=== PATIENT | male | born 1955 | race Caucasian/White ===

== ENCOUNTER → 2024-03-28 | Outpatient (CLI) | payer MEDICARE ==
[2024-03-28 12:26] LABS: BASOPHILS ABSOLUTE AUTO 0.02 K/mm3 (0.00-0.23); BASOPHILS PERCENT AUTO 0 % (0-2); EOSINOPHILS ABSOLUTE AUTO 0.04 K/mm3 (0.00-0.68); EOSINOPHILS PERCENT AUTO 0 % (0-6); Hematocrit 42.3 % (37.0-53.0); Hemoglobin 14.2 g/dL (13.5-17.5); IMMATURE GRAN ABSOLUTE AUTO 0.06 K/mm3 (0.00-0.10); IMMATURE GRAN PERCENT AUTO 1 % (0-1); LYMPHOCYTES ABSOLUTE AUTO 0.82 K/mm3 (0.84-5.20); LYMPHOCYTES PERCENT AUTO 7 % (21-46); MONOCYTES ABSOLUTE AUTO 1.09 K/mm3 (0.16-1.47); MONOCYTES PERCENT AUTO 9 % (4-13); Mean Corpuscular HGB 30.9 pg (26.0-34.0); Mean Corpuscular HGB Conc 33.6 g/dL (31.5-36.5); Mean Corpuscular Volume 92 fL (80-100); Mean Platelet Volume 9.9 fL (9.1-12.4); NEUTROPHILS ABSOLUTE AUTO 10.66 K/mm3 (1.96-9.15); NEUTROPHILS PERCENT AUTO 84 % (41-73); Platelet Count 190 K/mm3 (150-400); RDW Coefficient Variation 12.6 % (11.7-14.2); RDW Standard Deviation 42.6 fL (35.1-46.3); Red Blood Cell Count 4.59 M/mm3 (4.30-5.90); White Blood Cell Count 12.69 K/mm3 (4.00-11.30)
[2024-03-28 12:36] LABS: Albumin, Blood 3.6 g/dL (3.4-5.0); Albumin/Globulin Ratio 0.8 (0.8-1.8); Bilirubin, Total 0.9 mg/dL (0.1-1.0); Bun/Creatinine Ratio 12.1 (12.0-20.0); Calcium, Blood 9.6 mg/dL (8.5-10.1); Creatinine, Blood 1.32 mg/dL (0.60-1.20); Globulin, Blood 4.8 g/dL (2.2-4.0); Potassium, Blood 4.8 mmol/L (3.5-5.5); Total Protein, Blood 8.4 g/dL (6.4-8.2)
== END | disposition home or self-care (01) ==
LOC: LAB 12:21 → LAB SHORT 12:21
PROVIDERS: Family Medicine
DX: R10.9 Unspecified abdominal pain (principal)
CPT/HCPCS: 80053; 85025

== ENCOUNTER 2024-05-23 13:37 | Inpatient (IN) | payer MEDICARE ==
[2024-05-23] VITALS (15 sets, daily range): BP systolic 80–201; BP diastolic 60–101
[~2024-05-23] VITALS: Ht 182.9 cm; Wt 79.6 kg
[2024-05-23 14:14] LABS: BASOPHILS ABSOLUTE AUTO 0.05 K/mm3 (0.00-0.23); BASOPHILS PERCENT AUTO 1 % (0-2); EOSINOPHILS ABSOLUTE AUTO 0.12 K/mm3 (0.00-0.68); EOSINOPHILS PERCENT AUTO 2 % (0-6); Hematocrit 36.8 % (37.0-53.0); Hemoglobin 11.9 g/dL (13.5-17.5); IMMATURE GRAN ABSOLUTE AUTO 0.17 K/mm3 (0.00-0.10); IMMATURE GRAN PERCENT AUTO 2 % (0-1); LYMPHOCYTES ABSOLUTE AUTO 1.76 K/mm3 (0.84-5.20); LYMPHOCYTES PERCENT AUTO 21 % (21-46); MONOCYTES ABSOLUTE AUTO 0.65 K/mm3 (0.16-1.47); MONOCYTES PERCENT AUTO 8 % (4-13); Mean Corpuscular HGB 29.9 pg (26.0-34.0); Mean Corpuscular HGB Conc 32.3 g/dL (31.5-36.5); Mean Corpuscular Volume 93 fL (80-100); Mean Platelet Volume 9.8 fL (9.1-12.4); NEUTROPHILS ABSOLUTE AUTO 5.48 K/mm3 (1.96-9.15); NEUTROPHILS PERCENT AUTO 67 % (41-73); Platelet Count 204 K/mm3 (150-400); RDW Coefficient Variation 13.2 % (11.7-14.2); RDW Standard Deviation 44.7 fL (35.1-46.3); Red Blood Cell Count 3.98 M/mm3 (4.30-5.90); White Blood Cell Count 8.23 K/mm3 (4.00-11.30)
[2024-05-23] MEDS ORDERED: Rocuronium Bromide 10 MG/ML 5ML Injection IV ONE (14:18)
[2024-05-23] MEDS ORDERED: Propofol 10mg/ml 20 ml Vial (Procedural) IV ONE (14:18)
[2024-05-23] MEDS ORDERED: Phenylephrine HCl 100 MCG/ML-NS 10MLSYR (1MG/10ML) IV ONE (14:18)
[2024-05-23 14:21] LABS: Base Excess Venous -1.2 mmol/L; Bicarbonate Venous 22.6 mmol/L (24.0-30.0); PCO2 Venous 51.1 mmHg (38-42)
[2024-05-23 14:27] LABS: International Normalized Ratio 1.08; Prothrombin Time Results 11.5 Sec (9.7-11.5)
[2024-05-23 14:37] LABS: Free Thyroxine 1.2 ng/dL (0.70-1.60); Magnesium, Blood 2.4 mg/dL (1.6-2.4)
[2024-05-23 14:39] LABS: Bun/Creatinine Ratio 21.3 (12.0-20.0); Calcium, Blood 8.7 mg/dL (8.5-10.1); Creatinine, Blood 0.94 mg/dL (0.60-1.20); Potassium, Blood 4.5 mmol/L (3.5-5.5); Thyroid Stimulating Hormone 6.86 uIU/mL (0.360-4.800)
[2024-05-23] MEDS ORDERED: Diphth,Pertuss(Acell),Tet Vac 0.5 ML VIAL IM ONE (14:55)
[2024-05-23] MEDS ORDERED: CeFAZolin Sodium 2,000 MG in NS 100 ML IV ONE (15:45)
[2024-05-23] MEDS ORDERED: Heparin Sodium,Porcine/0.5 NS 500 ML IV SCH (16:25)
[2024-05-23] MEDS ORDERED: Heparin Sodium 5000 Units/ML 1ML MDV IV ONE (16:25)
[2024-05-23] MEDS ORDERED: HYDROmorphone HCl/Pf 1MG SYR IV ONE (16:30)
[2024-05-23] MEDS ORDERED: Ondansetron HCl 2 MG / ML 2ML Vial IV PRN (16:35)
[2024-05-23] MEDS ORDERED: FLU VACC TS2024-25(6MOS UP)/PF 45 MCG/0.5 ML SYRINGE IM PRN (16:35)
--- NOTE | 2024-05-23 19:17 | NUR ---
Admission to ICU: Patient arrived to ICU at approx 1800hr. Patient alert and oriented x4, VSS. Patient on BiPAP at 40% on arrival, but activley oozing/bleeding from nose. Concern for aspiration of blood, BiPAP mask removed and placed on high-flow cannula at 10L. NC placed over mouth as nose is plugged with blood. SpO2-88-92%. Denies difficulty breathing and shows no s/s of respiratory distress. Bleeding from nose increased over next hour to constant oozing from right nostril. Call's placed to Dr. Monterroso, made aware. Call also placed to Dr. Jones in ED to discuss use of rhino rockets. Dr. Jones then discussed case with Dr. Yee, and arrived to unit at this time to joe patient's nostrils. VS remain stable. Pre-blake results of venous duplex study and echo discussed with Dr. Camacho, who is in route to see patient at this time. Patient possibly going to [facility] for thrombectomy, Dr. Camacho to determine. Bedside report given to Heena HERRING.
[2024-05-23 20:03] LABS: Hematocrit 35.1 % (37.0-53.0); Hemoglobin 11.6 g/dL (13.5-17.5)
[2024-05-23] MEDS ORDERED: FentaNYL Citrate 50 MCG/ML 2 ML Injection ONE ×2 (20:05→20:37)
[2024-05-23 20:14] LABS: Anti-Xa UFH, PHA Monitoring 0.71 IU/mL
[2024-05-23] MEDS ORDERED: propofoL 100 ML IV SCH (20:25)
[2024-05-23] MEDS ORDERED: FentaNYL Citrate 50 MCG/ML 2 ML Injection IV ONE ×3 (20:40→21:10)
[2024-05-23] MEDS ORDERED: Midazolam HCl 1MG / ML 2ML Vial ONE (21:04)
[2024-05-23] MEDS ORDERED: Midazolam HCl 1MG / ML 2ML Vial IV ONE (21:15)
[2024-05-23] MEDS ORDERED: fentaNYL citrate 1,000 MCG in NS 80 ML IV SCH (21:30)
[2024-05-23] MEDS ORDERED: NS 250 ML IV ONE (22:02)
[2024-05-23] MEDS ORDERED: NS 100 ML IV ONE (22:02)
[2024-05-23] MEDS ORDERED: Heparin Sodium 1000 Units/ML 10ML MDV ONE (22:03)
[2024-05-23] MEDS ORDERED: NS 2,000 ML IV ONE (22:03)
[2024-05-23 22:08] LABS: Source, Urine Foley catheter
[2024-05-23 22:10] LABS: Appearance, Urine Clear (Clear); Bilirubin, Urine Neg (Neg); Blood, Urine 2+ (Neg); Color, Urine Yellow (P-Yellow); Glucose Qualitative, Urine Neg (Neg); Ketones, Urine 3+ (Neg); Leukocyte Esterase, Urine Neg (Neg); Nitrite, Urine Neg (Neg); Protein, Urine 2+ (Neg); Specific Gravity, Urine 1.025 (1.003-1.022); Urobilinogen, Urine NORM (Normal)
[2024-05-23 22:25] LABS: Bacteria Few /hpf; Hyaline Casts 0-2 /lpf (0-2); Mucus Light (0-Heavy); Red Blood Cells, Urine 0-2 /hpf (0-2); Squamous Epithelial Cells Few /hpf (Few); White Blood Cells, Urine 0-2 /hpf (0-5)
[2024-05-23] MEDS ORDERED: Atropine Sulfate 0.1 MG/ML 10ML SYR ONE ×2 (23:34→23:35)
[2024-05-24] VITALS (77 sets, daily range): BP systolic 82–150; BP diastolic 55–74
[2024-05-24] MEDS ORDERED: CeFAZolin Sodium 2,000 MG in NS 100 ML IV SCH
[2024-05-24] MEDS ORDERED: NS 250 ML IV ONE (00:25)
[2024-05-24] MEDS ORDERED: Heparin Sodium 1000 Units/ML 10ML MDV ONE (00:25)
[2024-05-24] MEDS ORDERED: Midazolam HCl 1MG / ML 2ML Vial ONE (00:45)
[2024-05-24] MEDS ORDERED: NS 250 ML IV PRN (02:15)
--- NOTE | 2024-05-24 02:28 | NUR ---
ASSUMED CARE AT 1900 PATIENT WAS ALERT AND ORIENTED X4 AT START OF SHIFT, SITTING UP IN BED. MODERATE AMOUNT OF BLOOD FROM NOSE AND PATIENT COUGHING UP AND SUCTIONING BLOOD FROM HIS MOUTH. PATIENT STATES ITS DIFFICULT TO BREATHE. HR SR-ST 90s-120s. BP HYPERTENSIVE. DISCUSSION WITH PATIENT ABOUT PROTECTING HIS AIRWAY AND POSSIBLY NEEDING TO LAY FLAT FOR ROULETTE DEALER PROCEDURE. HEPARIN DRIP INFUSING, AWARE OF BLEEDING. DECISION TO INTUBATE PATIENT. DR. VEGA AT BEDSIDE. 2020- 50 MCG FENTANYL 2020- 40 MG PROPOFOL 2021- 40 MG PROPOFOL 2022- 50 MCG FENTANYL, ETT PLACED 8.0 26 AT THE TEETH 2023- 50 MG BANDAR FOR VENT COMPLIANCE, VENT SETTINGS AC VC 16/540/5/100% AFTER INTUBATION CENTRAL LINE PLACED BY DR. VEGA. PATIENTS BLOOD PRESSURE DECLINING, DR. VEGA AT BEDSIDE AND ORDERS TO PUSH PHENYLEPHRINE 100 MCG AT 2110, ANOTHER DOSE 100 MCG GIVEN AT 2126, AND LAST DOSE OF 100 MCG GIVEN AT 2139. PATIENT STARTED ON LEVOPHED. PROPOFOL AND FENTANYL INFUSING FOR SEDATION. NOVOA CATHETER PLACED. DR. LAZO TO BEDSIDE WITH ROULETTE DEALER, PATIENT TO ROULETTE DEALER AT 2235. THIS RN WITH PATIENT TO ROULETTE DEALER. PATIENT BACK TO ICU 8 FROM ROULETTE DEALER AT 0200, RIGHT GROIN FLOSTASIS DEVICE IN PLACE AND PRESSURE DRESSING OVERTOP.
[2024-05-24 03:31] LABS: BASOPHILS ABSOLUTE AUTO 0.02 K/mm3 (0.00-0.23); BASOPHILS PERCENT AUTO 0 % (0-2); EOSINOPHILS ABSOLUTE AUTO 0.01 K/mm3 (0.00-0.68); EOSINOPHILS PERCENT AUTO 0 % (0-6); Hemoglobin 9.3 g/dL (13.5-17.5); IMMATURE GRAN PERCENT AUTO 1 % (0-1); LYMPHOCYTES ABSOLUTE AUTO 1.02 K/mm3 (0.84-5.20); LYMPHOCYTES PERCENT AUTO 8 % (21-46); MONOCYTES ABSOLUTE AUTO 0.86 K/mm3 (0.16-1.47); MONOCYTES PERCENT AUTO 6 % (4-13); Mean Corpuscular HGB 30.5 pg (26.0-34.0); Mean Corpuscular HGB Conc 33.2 g/dL (31.5-36.5); Mean Corpuscular Volume 92 fL (80-100); Mean Platelet Volume 9.3 fL (9.1-12.4); NEUTROPHILS ABSOLUTE AUTO 11.64 K/mm3 (1.96-9.15); NEUTROPHILS PERCENT AUTO 85 % (41-73); Platelet Count 185 K/mm3 (150-400); RDW Coefficient Variation 13.2 % (11.7-14.2); RDW Standard Deviation 44.7 fL (35.1-46.3); Red Blood Cell Count 3.05 M/mm3 (4.30-5.90); White Blood Cell Count 13.65 K/mm3 (4.00-11.30)
[2024-05-24 03:52] LABS: Albumin, Blood 2.7 g/dL (3.4-5.0); Albumin/Globulin Ratio 0.8 (0.8-1.8); Bilirubin, Total 0.4 mg/dL (0.1-1.0); Bun/Creatinine Ratio 22.9 (12.0-20.0); Creatinine, Blood 0.83 mg/dL (0.60-1.20); Globulin, Blood 3.2 g/dL (2.2-4.0); Potassium, Blood 4.9 mmol/L (3.5-5.5); Total Protein, Blood 5.9 g/dL (6.4-8.2)
--- NOTE | 2024-05-24 06:07 | NUR ---
SHIFT SUMMARY PATIENT REMAINS INTUBATED AND SEDATED ON PROPOFOL AND FENTANYL, COUGHS AND UNABLE TO TOLERATE VENT WITH ANY STIMULI. SP02 100% ON VENT AC VC 16/540/5/90%, RR 20, SMALL AMOUNT OF JUANITO RED BLOOD FROM ETT. LUNG SOUNDS COARSE. HR SR 80s, BP HYPOTENSIVE, MAINTAINING MAP >65 ON LEVOPHED. OG TO LIS, 100 MLS DARK BROWN OUTPUT. NOVOA PATENT AND DRAINING TO GRAVITY. FACE SWOLLEN AND BRUISED, ATTEMPTED TO CLEAN BUT PATIENT UNABLE TO TOLERATE. RIGHT GROIN SITE WNL WITH FLOWSTASIS DEVICE AND TEGADERM
[2024-05-24] MEDS ORDERED: Cetylpyridinium Chloride 1 EA MISC MT SCH (08:00)
[2024-05-24] MEDS ORDERED: Lactated Ringer's 1,000 ML IV ONE ×2 (10:00→15:40)
[2024-05-24] MEDS ORDERED: Hydrogen Peroxide 1.5 % Solution MT SCH (12:00)
[2024-05-24 12:12] LABS: Base Excess Venous 0.9 mmol/L; Bicarbonate Venous 24.8 mmol/L (24.0-30.0); PCO2 Venous 48.1 mmHg (38-42); pH Blood Venous 7.35 (7.34-7.37)
--- NOTE | 2024-05-24 14:13 | NUR ---
Flow stasis device removed at 1405, site observed for bleeding/oozing, sutures removed and occlusive dressing applied.
--- NOTE | 2024-05-24 18:15 | NUR ---
Summary. Pt continues ventilated and sedated. Fi02 titrated down to 30%. Levophed at 4 mcg/min. Flow stasis device removed. No acute events this shift. See chart for further details.
--- NOTE | 2024-05-24 19:24 | NUR ---
ASSUMED CARE AT 1900 PATIENT IS INTUBATED AND SEDATED ON PROPOFOL AND FENTANYL, RASS -3 TO -4. LOCALIZES TO PAIN, GAG AND COUGH PRESENT. SP02 95% ON VENT, VENT AC VC 16/540/5/30%, RR 16. HR SR 80s, BP HYPOTENSIVE, LEVOPHED INFUSING TO MAINTAIN MAP >65. OG TO LIS, BROWN BILE OUTPUT. NOVOA PATENT AND DRAINING CLEAR YELLOW URINE TO GRAVITY. BRUSING AND FACIAL SWELLING STILL PRESENT FROM FALL, NO LONGER OOZING BLOOD. ORAL CARE DONE. SEE SHIFT ASSESSMENT FOR MORE INFORMATION
[2024-05-24] MEDS ORDERED: Heparin Sodium,Porcine 5,000 UNIT/0.5 ML SDV SC ONE (21:00)
[2024-05-24] MEDS ORDERED: Heparin Sodium,Porcine 5,000 UNIT/0.5 ML SDV SC SCH (21:00)
[2024-05-25] VITALS (63 sets, daily range): BP systolic 89–135; BP diastolic 48–73
[2024-05-25 05:12] LABS: Hematocrit 22.2 % (37.0-53.0); Hemoglobin 7.2 g/dL (13.5-17.5); Mean Corpuscular HGB 30.1 pg (26.0-34.0); Mean Corpuscular HGB Conc 32.4 g/dL (31.5-36.5); Mean Corpuscular Volume 93 fL (80-100); Platelet Count 133 K/mm3 (150-400); RDW Coefficient Variation 13.4 % (11.7-14.2); RDW Standard Deviation 45.9 fL (35.1-46.3); Red Blood Cell Count 2.39 M/mm3 (4.30-5.90); White Blood Cell Count 9.41 K/mm3 (4.00-11.30)
--- NOTE | 2024-05-25 05:17 | NUR ---
SHIFT SUMMARY PATIENT REMAINS INTUBATED ABD SEDATED. VENT SETTINGS UNCHANGED. HR SR 90s, BP REMAINS HYPOTENSIVE, LEVOPHED TO MAINTAIN MAP >65. OG TO LIS. NOVOA PATENT AND DRAINING TO GRAVITY. NO ACUTE CHANGES OVERNIGHT
[2024-05-25 05:31] LABS: Bun/Creatinine Ratio 23.7 (12.0-20.0); Calcium, Blood 7.8 mg/dL (8.5-10.1); Creatinine, Blood 0.76 mg/dL (0.60-1.20); Potassium, Blood 4.1 mmol/L (3.5-5.5)
[2024-05-25] MEDS ORDERED: Heparin Sodium,Porcine/0.5 NS 500 ML IV SCH (07:00)
[2024-05-25] MEDS ORDERED: Dose Adjust by Pharmacy XX ONE (07:00)
[2024-05-25] MEDS ORDERED: Magnesium Hydroxide Conc 10 ML UDC PT PRN (12:10)
[2024-05-25] MEDS ORDERED: Docusate Sodium 100 MG UDC PT PRN (12:10)
[2024-05-25] MEDS ORDERED: Bisacodyl 10 MG Supp PR PRN (12:10)
[2024-05-25 12:37] LABS: Hematocrit 23.3 % (37.0-53.0); Hemoglobin 7.6 g/dL (13.5-17.5)
[2024-05-25] MEDS ORDERED: Dose Adjust by Pharmacy XX STA ×2 (14:06→20:50)
--- NOTE | 2024-05-25 18:45 | NUR ---
SHIFT SUMMARY: PT REMAINS INTUBATED, SETTINGS UNCHANGED. PROPOFOL @ 40UNITS/KG, FENTANYL @ 50MCG/HR, HEPARIN @18UNITS/KG. CENTRAL LINE AND ONE PERIPHERAL IV PATENT. OG TUBE IN PLACE AND TUBE FEEDING @ 50ML/HR WITH A GOAL RATE OF 65. NOVOA CATHETER IN PLACE, URINE OUTPUT INADEQUATE AT 25ML/HR ON AVERAGE. HEPARIN WAS RESTARTED AT 0700 AND BLEEDING HAS BEEN MINIMAL. SMALL AMOUNT OF RED BLOOD SUCTIONED FROM ET TUBE AND MOUTH EACH TIME PATIENT SUCTIONED. LIGHT BLEEDING FROM NOSE BRIEFLY. CENTRAL LINE AND IVC FILTER INSERTION SITE LEAKING SMALL AMOUNT. BRUISING AND SWELLING TO FACE, ABLE TO ASSESS PUPILS. EYE MOVEMENT INTACT, PUPILS UNEQUAL WITH LEFT 1MM SMALLER. SINUS RHYTHM ON THE MONITOR 80S-90S AND NORMOTENSIVE BLOOD PRESSURE. PATIENT EXHIBITED SOME RESPONSES TO STIMULI AND NODDED HEAD TO 1 OR 2 QUESTIONS. OTHERWISE NOT FOLLOWING COMMANDS. PT WAS UP IN CHAIR FOR SEVERAL HOURS AND TOLERATED WELL.
--- NOTE | 2024-05-25 21:22 | NUR ---
ASSUMED CARE ASSUMED CARE AT 1900. PT INTUBATED AND SEDATED. AC/VC 16/460/5/30%. PROPOFOL, FENTANYL, AND HEPARIN GTT INFUSING. SEE FLOWSHEET FOR TITRATIONS. ABLE TO FOLLOWS SIMPLE DIRECTIONS, OPENS RIGHT EYE TO VERBAL STIMULI, AND NODS HEAD YES/NO TO QUESTIONS. TF AT 50ML/HR. NOVOA PATENT AND DRAINING TO GRAVITY. R GROIN SITE WITH MINIMAL BLEEDING NOTED. SMALL AMOUNT OF BLEEDING FROM NOSE AND MOUTH.
[2024-05-26] VITALS (68 sets, daily range): BP systolic 94–183; BP diastolic 53–82
[2024-05-26 03:36] LABS: BASOPHILS ABSOLUTE AUTO 0.03 K/mm3 (0.00-0.23); BASOPHILS PERCENT AUTO 0 % (0-2); EOSINOPHILS ABSOLUTE AUTO 0.28 K/mm3 (0.00-0.68); EOSINOPHILS PERCENT AUTO 3 % (0-6); Hematocrit 19.2 % (37.0-53.0); Hemoglobin 6.2 g/dL (13.5-17.5); IMMATURE GRAN ABSOLUTE AUTO 0.12 K/mm3 (0.00-0.10); IMMATURE GRAN PERCENT AUTO 2 % (0-1); LYMPHOCYTES PERCENT AUTO 11 % (21-46); MONOCYTES ABSOLUTE AUTO 0.57 K/mm3 (0.16-1.47); MONOCYTES PERCENT AUTO 7 % (4-13); Mean Corpuscular HGB 30.1 pg (26.0-34.0); Mean Corpuscular HGB Conc 32.3 g/dL (31.5-36.5); Mean Corpuscular Volume 93 fL (80-100); Mean Platelet Volume 10.1 fL (9.1-12.4); NEUTROPHILS PERCENT AUTO 77 % (41-73); Platelet Count 141 K/mm3 (150-400); RDW Coefficient Variation 13.5 % (11.7-14.2); RDW Standard Deviation 45.8 fL (35.1-46.3); Red Blood Cell Count 2.06 M/mm3 (4.30-5.90)
[2024-05-26] MEDS ORDERED: Dose Adjust by Pharmacy XX STA ×3 (03:53→18:06)
[2024-05-26 04:26] LABS: Anion Gap 9 mmol/L (3-11); Blood Urea Nitrogen 16 mg/dL (8-24); Bun/Creatinine Ratio 24.8 (12.0-20.0); CO2, Blood 28 mmol/L (21-32); Calcium, Blood 7.8 mg/dL (8.5-10.1); Chloride, Blood 107 mmol/L (98-108); Creatinine, Blood 0.64 mg/dL (0.60-1.20); Glomerular Filtration Rate 102 (60-); Glucose, Blood 123 mg/dL (70-99); Phosphorus, Blood 2.3 mg/dL (2.5-4.9); Potassium, Blood 3.9 mmol/L (3.5-5.5); Sodium, Blood 140 mmol/L (136-145)
--- NOTE | 2024-05-26 05:18 | NUR ---
UPDATE CALL TO HOSP REGARDING HBG OF 6.2. ORDER FOR ONE UNIT OF PRBC AND A RECHECK ONE HOUR POST INFUSION. NO S/S OF MAJOR BLEEDING NOTED. PT DOES HAVE SCANT/MINIMAL BLEEDING FROM NOSE AND MOUTH. NO BRUISING OR HEMATOMA NOTED. PT HAS HAD AN INCREASE OF EDEMA TO NECK, BUT NECK REMAINS SOFT. VSS. REMAINS INTUBATED AND SEDATED AC/VC 16/460/5/35%. NODDING HEAD YES/NO TO QUESTIONS. NOVOA PATENT AND DRAINING TO GRAVITY. TF AT GOAL. WILL REPORT OFF TO ONCOMING RN.
[2024-05-26] MEDS ORDERED: FentaNYL Citrate 50 MCG/ML 2 ML Injection IV PRN (09:30)
[2024-05-26 10:26] LABS: Hematocrit 24.1 % (37.0-53.0); Hemoglobin 8.1 g/dL (13.5-17.5); Platelet Count 153 K/mm3 (150-400)
[2024-05-26] MEDS ORDERED: Ipratropium/Albuterol SulF 2.5-0.5MG/3 ML Amp INH SCH (10:30)
[2024-05-26] MEDS ORDERED: Sodium Phosphate 30 MM in Dextrose 5% 500 ML IV STA (13:29)
--- NOTE | 2024-05-26 16:16 | NUR ---
PATIENT WAS EXTUBATED THIS SHIFT. DID WELL WITH IT. DISCUSSED CASE WITH BEDSIDE RN. NOT CLEAR IF PROGNOSIS OR DIAGNOSIS HAD BEEN DISCUSSED WITH PATIENT AT THIS TIME.
--- NOTE | 2024-05-26 18:38 | NUR ---
SHIFT SUMMARY: PT REMAINED INTUBATED AND SEDATED AT THE START OF SHIFT. HE WAS EXTUBATED AT 0947 AFTER PASSING SBT. PT WAS QUICKLY ORIENTED, BUT HAD TO BE REMINDED AND EDUCATED THROUGHOUT THE SHIFT ABOUT WHAT HAPPENED AND WHY HE IS HERE. HE IS VERY PLEASANT AND COOPERATIVE. HE IS ON 9LPM @ A FIO2 OF 50 VIA HUMIDIFIED VENTURI MASK. PATIENT HAS A PRODUCTIVE COUGH AND IS SUCTIONING BLOOD FROM HIS MOUTH. HIS FACE IS BRUISED, BUT SWELLING HAS IMPROVED. CENTRAL LINE AND IVC FILTER INSERTION SITE WERE REDRESSED. NO EXTERNAL BLEEDING NOTED TODAY. PATIENT IS MOVING AROUND ON HIS OWN, BUT STILL PAINFUL AND REQUIRES ASSISTANCE WITH BIG MOVES. HE DOES NOT WANT ANYMORE FENTANYL FOR PAIN. PT REMAINS ON HEPARIN GTT. NOVOA CATHETER STILL IN PLACE. URINE OUTPUT HAS IMPROVED TODAY. SINUS RHYTHM ON THE MONITOR IN THE 90S. MAP <65.
--- NOTE | 2024-05-26 20:47 | NUR ---
ASSUMED CARE ASSUMED CARE AT 1900. PT A/O X 3 AND COOPERATIVE WITH CARE. STATES HE KNOWS THE ETT WAS TAKEN OUT TODAY BUT UNSURE OF WHAT HAPPENED BEFORE THAT. VSS, SR RATE 90'S. ON VENTURI MASK 9L 50% FIO2 WITH SPO2 GREATER THEN 91%. COUGHING OCCASIONALLY AND PT SUCTIONING RED SECRETIONS FROM MOUTH. C/O OF CHEST PAIN BUT DECLINES PAIN MEDICATION AT THIS TIME. NOVOA PATENT AND DRAINING TO GRAVITY. CALL LIGHT IN REACH.
[2024-05-27] VITALS (28 sets, daily range): BP systolic 107–165; BP diastolic 58–111
[2024-05-27 00:28] LABS: BASOPHILS ABSOLUTE AUTO 0.02 K/mm3 (0.00-0.23); BASOPHILS PERCENT AUTO 0 % (0-2); EOSINOPHILS PERCENT AUTO 2 % (0-6); Hematocrit 23.1 % (37.0-53.0); Hemoglobin 7.5 g/dL (13.5-17.5); IMMATURE GRAN ABSOLUTE AUTO 0.16 K/mm3 (0.00-0.10); IMMATURE GRAN PERCENT AUTO 2 % (0-1); LYMPHOCYTES ABSOLUTE AUTO 1.05 K/mm3 (0.84-5.20); LYMPHOCYTES PERCENT AUTO 11 % (21-46); MONOCYTES ABSOLUTE AUTO 0.68 K/mm3 (0.16-1.47); MONOCYTES PERCENT AUTO 7 % (4-13); Mean Corpuscular HGB 30.4 pg (26.0-34.0); Mean Corpuscular HGB Conc 32.5 g/dL (31.5-36.5); Mean Corpuscular Volume 94 fL (80-100); Mean Platelet Volume 9.6 fL (9.1-12.4); NEUTROPHILS PERCENT AUTO 79 % (41-73); NRBC ABSOLUTE 0.03 K/mm3 (0.00-0.02); NRBC Auto 0.3 /100 WBC (0.0-0.2); Platelet Count 173 K/mm3 (150-400); RDW Coefficient Variation 13.6 % (11.7-14.2); Red Blood Cell Count 2.47 M/mm3 (4.30-5.90); White Blood Cell Count 9.81 K/mm3 (4.00-11.30)
[2024-05-27 00:43] LABS: Bun/Creatinine Ratio 14.6 (12.0-20.0); Calcium, Blood 8.1 mg/dL (8.5-10.1); Creatinine, Blood 0.62 mg/dL (0.60-1.20); Magnesium, Blood 2.1 mg/dL (1.6-2.4); Phosphorus, Blood 2.6 mg/dL (2.5-4.9); Potassium, Blood 3.4 mmol/L (3.5-5.5)
[2024-05-27] MEDS ORDERED: Dose Adjust by Pharmacy XX STA ×4 (00:52→23:16)
--- NOTE | 2024-05-27 06:11 | NUR ---
SHIFT SUMMARY NO ACUTE EVENTS T/O NIGHT. PT A/O X 3. PT REPORTS THAT HE STILL FEELS HIS NOSE DRAINING TO THE BACK OF HIS THROAT AND SUCTIONS OUT THIN RED SECRETIONS. ANXIOUS AT TIMES REGARDING MEDICATIONS AND REQUIRES FREQUENT REMINDERS OF WHAT HAPPENED. VSS, HR 80-90'S. ON VENTURI MASK 7L 50% FIO2. HEPARIN GTT REMAINS INFUSING. SEE FLOWSHEET FOR RATE AND TITRATIONS. NOVOA PATENT AND DRAINING TO GRAVITY. WILL REPORT OFF TO ONCOMING RN.
[2024-05-27 07:04] LABS: Hemoglobin 7.6 g/dL (13.5-17.5); Mean Platelet Volume 9.5 fL (9.1-12.4); Platelet Count 189 K/mm3 (150-400)
[2024-05-27] MEDS ORDERED: Oxymetazoline 0.05% Nasal Relief Spray 15mL BTL PRN (08:00)
[2024-05-27] MEDS ORDERED: Potassium Chloride 20 MEQ TabCR PO ONE ×2 (10:10→13:40)
[2024-05-27] MEDS ORDERED: Potassium Chl 20MEQ/Water100ML 100 ML IV SCH (14:25)
--- NOTE | 2024-05-27 18:30 | NUR ---
DAY SHIFT SUMMARY PT ALERT THIS SHIFT KNOWING HIS NAME, , AND WHERE HE IS BUT HIS RECOLLECTION OF THE EVENTS THAT LED TO HIS CURRENT HOSPITALIZATION ARE UNKNOWN TO HIM. PT MAKING HIS NEEDS KNOWN. PT'S O2 STARTED THE SHIFT AT 7L 50% FIO2 ON THE VENTURI MASK BUT HE IS NOW DOWN TO 6L 35% FIO2, SPO2 STABLE >92%. MONITOR SHOWING SR 80'S-90'S THIS SHIFT. BP WNL AND STABLE. PT AFEBRILE THIS SHIFT. PT HAVING CONTINUED BLEEDING W POST NASAL DRIP THIS AM BUT AFTER HE RECIEVED AFRIN NASAL SPRAY THIS DECREASED SIGNIFICANTLY. PT TOLERATING CLEAR LIQUIDS THIS SHIFT BUT WAS UNABLE TO SWALLOW A PILL IN APPLESAUCE SO PO POTASSIUM CHANGED TO IV. PT REPORTING PAIN IN RIBS W MOVEMENT BUT DID NOT WANT ANY PAIN MEDICATION THIS SHIFT. PT HAD CENTRAL LINE REMOVED THIS SHIFT. PT UP IN CHAIR FOR SECOND HALF OF THE SHIFT TOLERATING WELL. WILL REPORT TO ONCOMING RN.
--- NOTE | 2024-05-27 22:03 | NUR ---
ASSUMED CARE ASSUMED CARE AT APPROXIMATELY 1915. PT RESTING COMFORTABLY IN BED WITH VENTURI MASK ON. PT ABLE TO SELF CLEAR SECRETIONS COUGHING WITH ORAL SUCTION. PT COMPLAINS OF 7/10 PAIN BUT REFUSES ANY PAIN MEDS. WILL CONTINUE PLAN OF CARE.
[2024-05-28] VITALS (15 sets, daily range): BP systolic 114–170; BP diastolic 54–77
--- NOTE | 2024-05-28 03:46 | NUR ---
SHIFT SUMMARY PT TITRATED UP TO 7L 40% OVER NIGHT. PT TOLERATING MASK WELL. PT HAS INTERMITTENT CONFUSION STATING IF 'IT IS GOING TO RESTART THE PROGRAM'. NO FURTHER CONTEXT GIVEN BY PT. THIS NURSE MINIMIZED STIMULI, CLUSTERED CARE AND ENCOURAGED QUALITY SLEEP. PT REMAINED NSR-ST 90S WITH BP 130-160SYS. PT WOULD DESAT DOWN TO APPROXIMATELY 80% WHEN MASK WAS TAKEN OFF DURING EPISODES OF CONFUSION. WILL CONTINUE PLAN OF CARE.
[2024-05-28 05:38] LABS: Hematocrit 24.8 % (37.0-53.0); Mean Corpuscular HGB Conc 32.3 g/dL (31.5-36.5); Mean Corpuscular Volume 93 fL (80-100); Mean Platelet Volume 9.7 fL (9.1-12.4); NRBC ABSOLUTE 0.03 K/mm3 (0.00-0.02); NRBC Auto 0.3 /100 WBC (0.0-0.2); Platelet Count 208 K/mm3 (150-400); RDW Coefficient Variation 13.8 % (11.7-14.2); RDW Standard Deviation 46.5 fL (35.1-46.3); Red Blood Cell Count 2.67 M/mm3 (4.30-5.90); White Blood Cell Count 10.48 K/mm3 (4.00-11.30)
[2024-05-28 06:18] LABS: Bun/Creatinine Ratio 25.2 (12.0-20.0); Calcium, Blood 8.5 mg/dL (8.5-10.1); Creatinine, Blood 0.48 mg/dL (0.60-1.20); Potassium, Blood 4.3 mmol/L (3.5-5.5)
[2024-05-28] MEDS ORDERED: Dose Adjust by Pharmacy XX STA (06:40)
[2024-05-28] MEDS ORDERED: Apixaban 5 MG Tab PO SCH (11:00)
--- NOTE | 2024-05-28 15:59 | NUR ---
MATTHEW IS A/O X4. WELCOMING OF PC VISIT. PT IS SITTING UP IN RECLINER WITH VENTIMASK IN PLACE. HE IS ABLE TO MAKE NEEDS KNOWN. WHEN THIS PC RN SHOWED BADGE TO PT, HE RESPONDED WITH, "IT WON'T DO ME ANY GOOD. I CAN'T SEE ANYTHING". PT'S GLASSES LOCATED IN HIS BELONGINGS BAG, CLEANED AND HANDED TO PT. D/T FACIAL FX PT IS NOT ABLE TO WEAR GLASSES. HE IS ABLE TO HOLD GLASSES TO HIS FACE WHEN NEEDED. ATTEMPTED TO LOCATE PT'S CELL PHONE IN HIS BELONGINGS. PT STATES, "MY CELL PHONE IS PROBABLY IN MY CAR". WHEN ASKED ABOUT EMERGENCY CONTACTS, HE HAS A SON IN [place]. A SON, "SOMEWHERE ELSE. HE IS SUPER BUSY AND HAS KIDS." PT DECLINED ANY FAMILY MEMBER NAMES AND DOES NOT HAVE CONTACT INFO HE DOESN'T HAVE HIS PHONE WITH HIM. ALIRIO FROM [employer] NOTIFIED OF PT'S VEHICLE BEING IN [employer] PARKING LOT. PT'S CAR KEYS ARE IN HIS BELONGINGS BAG. SECURITY TO CONTACT PT AND ATTEMPT TO LOCATE PT'S VEHICLE AND CELL PHONE. PRIMARY RN NOTIFIED OF REQUEST. PT DOES NOT LIKE WESTERN MEDICINE AND FAVORS A NATUROPATHIC APPROACH. 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 HE SOLD HIS PRACTICE 2 YEARS AGO AND MOVED TO [place]. WHEN HOSPITALIZED FOR A STROKE (SELF REPORTED) 3 YRS AGO, HE DIDN'T AGREE WITH THE CARE HE WAS RECEIVING AND CHECK HIMSELF OUT AMA. HE REPORTS, HOSPITAL DIAGNOSED HIM WITH COVID AND HE DENIES HAVING COVID AND STATED "IT WAS A HOAX TO GET MONEY. I HAD A STROKE. I REHABED MYSELF". DENIES ANY ANTI-COAG TX.
--- NOTE | 2024-05-28 17:37 | NUR ---
DAY SHIFT SUMMARY PT ALERT AND ORIENTED THIS SHIFT COMMUNICATING APPROPRIATELY W STAFF. PT UP IN CHAIR FOR MOST OF THE DAY AFTER HE WORKED W OCCUPATIONAL THERAPY. PT REMAINED ON VENTI MASK 9L 35% FIO2 THIS SHIFT. PT AGAIN HAD BLOODY NOSE AFTER WORKING W OCCUPATIONAL THERAPY BUT WAS GIVEN AFRIN WHICH RESOLVED THE BLEEDING. PT BRIDGED FROM HEPARIN TO ELIQUIS THIS SHIFT. PT'S BP WNL AND STABLE. PT AFEBRILE THIS SHIFT. PT TOLERATING FULL LIQUID DIET THIS SHIFT. MONITOR SHOWING SR 90'S W ONE VERY SMALL RUN OF SVT. PT'S CELL PHONE RETRIEVED FROM HIS VEHICLE BY SECURITY THIS SHIFT. W REPORT TO ONCSINCERE HERRING.
[2024-05-28] MEDS ORDERED: Lactobacil 2-S.Thermo-Bifido 1 1 Cap PO SCH (21:00)
[2024-05-28] MEDS ORDERED: Acetaminophen 325 MG TABLET PO PRN (21:30)
[2024-05-29 02:39] VITALS: BP 143/69
--- NOTE | 2024-05-29 02:43 | NUR ---
TRANSFER SUMMARY PT TO PCU ROOM 3. PT TRANFERRED ON 15L VIA NRB. PT DESATTED IN ICU ROOM PRIOR TO TRANSFER W/ RT CARIN AT BEDSIDE. SATS TO 71%- IMPROVED RAPIDLY WHEN SWITCHED TO NRB. PT BELONGINGS W/ HIM INCLUDING CELL PHONE, CLOTHING, TINCTURES, GLASSES, ETC.
[2024-05-29 04:22] LABS: BASOPHILS ABSOLUTE AUTO 0.04 K/mm3 (0.00-0.23); BASOPHILS PERCENT AUTO 0 % (0-2); EOSINOPHILS ABSOLUTE AUTO 0.24 K/mm3 (0.00-0.68); EOSINOPHILS PERCENT AUTO 2 % (0-6); Hematocrit 25.6 % (37.0-53.0); Hemoglobin 8.3 g/dL (13.5-17.5); IMMATURE GRAN ABSOLUTE AUTO 0.21 K/mm3 (0.00-0.10); IMMATURE GRAN PERCENT AUTO 2 % (0-1); LYMPHOCYTES PERCENT AUTO 7 % (21-46); MONOCYTES ABSOLUTE AUTO 1.02 K/mm3 (0.16-1.47); MONOCYTES PERCENT AUTO 9 % (4-13); Mean Corpuscular HGB 30.1 pg (26.0-34.0); Mean Corpuscular HGB Conc 32.4 g/dL (31.5-36.5); Mean Corpuscular Volume 93 fL (80-100); Mean Platelet Volume 9.8 fL (9.1-12.4); NEUTROPHILS ABSOLUTE AUTO 8.79 K/mm3 (1.96-9.15); NEUTROPHILS PERCENT AUTO 79 % (41-73); NRBC ABSOLUTE 0.03 K/mm3 (0.00-0.02); NRBC Auto 0.3 /100 WBC (0.0-0.2); Platelet Count 189 K/mm3 (150-400); RDW Coefficient Variation 14.1 % (11.7-14.2); RDW Standard Deviation 47.1 fL (35.1-46.3); Red Blood Cell Count 2.76 M/mm3 (4.30-5.90)
[2024-05-29 04:41] LABS: Calcium, Blood 8.8 mg/dL (8.5-10.1); Creatinine, Blood 0.7 mg/dL (0.60-1.20); Potassium, Blood 3.9 mmol/L (3.5-5.5)
[2024-05-29 05:58] VITALS: BP 142/70
--- NOTE | 2024-05-29 06:38 | NUR ---
ASSUMED CARE OF PT AT 0230. PT AOX4 ON 15LO2 BY NONREBREATHER FOR TRANSPORT TO ROOM. PT TRANSFERED FROM BED TO W/C TO PLACE PT IN ROOM. PT ABLE TO STAND AND TRANSFER FROM BED TO W/C AND BACK TO BED WITH 1 ASSIST. PT FAIRLY STEADY ON FEET. PT HAS B/L BRUISING TO EYES AND NOSE. PT DOES C/O EPISTAXIS FROM RIGHT SIDE NARE. PT EDUCATED NOT TO BLOW NOSE D/T NASAL BONE AND SINUS FXS. PT VERBALIZES UNDERSTANDING. PT C/O RIB PAIN S/P BYSTANDER CPR PRIOR TO ADMIT. PILLOW SPLINT TECHNIQUE SHOWN AND PT IMPLIMENTING TO HELP WITH PAIN. PT ON VENTI-MASK 11L 45% WITH GOOD O2 SATURATION. OTHER VITAL SIGNS REMAIN WNL. PT USES URINAL AT BEDSIDE INDEPENDENTLY. SUCTION SETUP REQUESTED BY PT AND GIVEN TO THEM.
--- NOTE | 2024-05-29 06:54 | NUR ---
PT STABLE THROUGHOUT SHIFT, NO CHANGES SINCE ASSUMPTION OF CARE.
[2024-05-29 08:23] VITALS: BP 128/59
[2024-05-29 11:34] VITALS: BP 121/70
--- NOTE | 2024-05-29 15:01 | NUR ---
SUPPORTIVE VISIT FOLLOW UP WITH MATTHEW FROM YESTERDAY'S VISIT 05/28/24 WHEN HE WAS IN ICU. MATTHEW EXPRESSED GRATITUDE FOR ASSISTANCE WITH GETTING ACCESS TO HIS CELL PHONE. HE WAS ABLE TO MAKE CONTACT WITH HIS FRIEND BAL. MET WITH MATTHEW AND HIS FRIEND/EMERGENCY CONTACT, LINWOODDOROTHEA AT BEDSIDE TO FILL OUT A POLST FORM. REVIEWED CPR VS DNR. PT ELECTED DNR. EXTENSIVE EDUCATION ON THE THREE LEVELS OF MEDICAL INTERVENTIONS. PT ELECTED SELECTIVE MEDICAL INTERVENTIONS. POLST FILLED OUT TO REFLECT PT'S WISHES OF DNR/SELECTIVE, PENDING PROVIDER SIGNATURE. FORM LEFT ON WHITE BOARD IN ROOM FOR PROVIDER. BAL RECITED TODAYS VISIT WITH DR. SERRATO RE: PT'S PROGNOSIS. MATTHEW IS PLANNING ON D/C TO SNF AND FOLLOWING UP WITH ONCOLOGY FOR DIAGNOSTICS. PROVIDED ADVANCE DIRECTIVE BOOKLET FOR PT AND FRIEND TO REVIEW. THEY WILL REVIEW MATERIALS AND CALL PC IF ANY QUESTIONS OR ASSISTANCE IS NEEDED. PRIMARY RN, PRODUCT SCIENTIST AND CM UPDATED ON VISIT. PC TO REMAIN AVAILABLE.
--- NOTE | 2024-05-29 18:05 | NUR ---
SHIFT SUMMARY; ASSUMED CARE AT 0700. A/A/OX4. SITS IN RECLINER CHAIR MOST OF SHIFT. VENTI MASK AT 11L, CLEAR LIQUID DIET. VSS, PLEASANT AND COOPERATIVE WITH CARE. USES URINAL AT BEDSIDE. FAMILY AT BEDSIDE DURING SHIFT. NO ACUTE CHANGES, WILL CONTINUE TO MONITOR AND TREAT UNTIL CHANGE OF SHIFT.
[2024-05-29 20:42] VITALS: BP 128/69
--- NOTE | 2024-05-30 00:35 | NUR ---
PT REPORTING VERY VIVID DREAMS, INITIALLY CALLING THEM HALLUCINATIONS BUT DOES NOT SEE THEM AWAKE. PT REMAINS AOX4 W/O HALLUCINATIONS OR DELUSIONS WHILE AWAKE. NO HEADACHE OR CHANGES IN NEURO STATUS. VITAL SIGNS WNL.
[2024-05-30 00:54] VITALS: BP 142/67
[2024-05-30 03:46] LABS: Hematocrit 25.3 % (37.0-53.0); Hemoglobin 8.3 g/dL (13.5-17.5); Mean Corpuscular HGB 30.5 pg (26.0-34.0); Mean Corpuscular HGB Conc 32.8 g/dL (31.5-36.5); Mean Corpuscular Volume 93 fL (80-100); Mean Platelet Volume 9.5 fL (9.1-12.4); Platelet Count 150 K/mm3 (150-400); RDW Standard Deviation 47.4 fL (35.1-46.3); Red Blood Cell Count 2.72 M/mm3 (4.30-5.90); White Blood Cell Count 10.05 K/mm3 (4.00-11.30)
[2024-05-30 04:58] VITALS: BP 127/70
--- NOTE | 2024-05-30 06:53 | NUR ---
PT STABLE THROUGHOUT THE SHIFT. PT AOX4 VITAL SIGNS STABLE. PT CONTINUES TO REQUIRE O2 SUPPORT AND IS ON 9L 40% ON VENTI-MASK. PT INDEPENDENT WITH URINAL USE AT BEDSIDE. URINE IS DARKENING SOMEWHAT FROM YELLOW TO AMANDA AND PT ENCOURAGED TO PUSH PO FLUIDS. NEURO REMAINS UNCHANGED, EPISTAXIS SEEMS TO BE SLOWING TO RIGHT NARE. PT C/O DRY CHAPPED LIPS AND GIVEN MOISTURIZER. VIVID DREAMS DID SEEM TO RESOLVE AT THE END OF SHIFT PER PT REPORT.
[2024-05-30 08:04] VITALS: BP 115/51
--- NOTE | 2024-05-30 11:04 | NUR ---
SIRIA UPDATE REPORT GIVEN TO [facility] RN AT 1050. PT TRANSFERED TO [facility] AT 1105 VIA WHEELCHAIR. PT ON 5L NC AT TIME OF TRANSFER. PT PERSONAL BELONGINGS IN BAGS AND TRNASFERED WITH PT ALONG WITH PT CHART.
--- NOTE | 2024-05-30 15:45 | NUR ---
THIS RN ASSUMED CARE OF PATIENT. PATIENT IV ASSESSED, ASSISTED TO THE RESTROOM, AND BACK TO HIS CHAIR. PATIENT REPORTS THAT HE DID NOT DECLINE PAIN MEDICATION, BUT DOESN'T NEED ANYTHING RIGHT NOW. RATES HIS PAIN A 1-2/10 WHILE RESTING. NO SIGNS OR SYMPTOMS OF DISTRESS WITH PATIENT. PLAN OF CARE ONGOING.
[2024-05-30 16:10] VITALS: BP 122/58
--- NOTE | 2024-05-30 17:20 | NUR ---
PATIENT SITTING IN BED SIDE CHAIR, FAMILY AT BEDSIDE VISITING, NO SIGNS OR SYMPTOMS OF DISTRESS, PLAN OF CARE ONGOING.
[2024-05-30 19:41] VITALS: BP 139/71
[2024-05-31] VITALS (25 sets, daily range): BP systolic 84–123; BP diastolic 50–75
--- NOTE | 2024-05-31 06:39 | NUR ---
SHIFT SUMMARY: Pt is admitted for saddle embolism of the pulmonary artery and is a DNR. is alert and able to make needs known. States his pain is 2/10 when he does not cough and that is ok. ADLs have been mostly SBA. malachi reports sinus in the 80s. Did convert into a flutter and tach about 0420. When the LN was notified he was moving in bed and starting to sit on the side of the bed. Malachi reported about 0630 that he was still in aflutter and has not dropped below 120 since converting. notified and gave order for lopresser 5mg iv x1.
[2024-05-31] MEDS ORDERED: Metoprolol Tartrate 1 MG/ML 5 ML VIAL IV ONE (06:40)
[2024-05-31] MEDS ORDERED: Albuterol 2.5 MG/3 ML VIAL INH PRN (07:10)
[2024-05-31] MEDS ORDERED: Metoprolol Tartrate 25 MG Tab PO SCH (08:00)
--- NOTE | 2024-05-31 09:20 | NUR ---
IV LOPRESSOR 5 MG GIVEN AT 0754. AT 0805 TELE CALLED AND REPORTED THAT PATIENT STILL IN A FLUTTER BUT HEARTRATE COMING DOWN LOW TEENS TO 120'S. NO S/S FROM PATIENT. BLOOD PRESSURE STABLE. 0851 TELE CALLED A FLUTTER AT 147. NO S/S FROM PATIENT. CALL MADE TO DR. SERRATO. HE ADVISED TO GIVE PO METORPOLOL AND TO FOLLOW UP AND REPORT BACK TO HIM [address] SERRATO CAME TO BEDSIDE AND VISITED WITH PATIENT AND FAMILY.
[2024-05-31] MEDS ORDERED: Diltiazem HCl 5 MG / ML 10ML Vial IV STA (10:15)
[2024-05-31] MEDS ORDERED: NS 500 ML IV SCH (10:20)
[2024-05-31] MEDS ORDERED: Diltiazem HCl 5 MG / ML 5ML Vial IV STA (10:23)
--- NOTE | 2024-05-31 10:34 | NUR ---
CALLED TELE AT 1009; PATIENT A FLUTTER AT 147; BP TAKEN AND 95/61 CALLED AMA. HE PLACED ORDERED FOR 250 NS ML BOLUS AND IV DILTIAZEM.
[2024-05-31] MEDS ORDERED: Metoprolol Tartrate 1 MG/ML 5 ML VIAL IV STA (11:50)
[2024-05-31] MEDS ORDERED: NS 1,000 ML IV SCH (11:55)
--- NOTE | 2024-05-31 12:11 | NUR ---
NOTIFIED AMA THAT PATIENT'S BLOOD PRESSURE DID NOT IMPROVED AT 500 ML BOLUS. HE ADVISED TO NOT GIVE THE DILTIAZEM AND TO GIVE A 1000ML NS BOLUS AND TO GIVE METOPROLOL 2.5 MG IV; WILL GIVE BOLUS FIRST, RECHECK BLOOD PRESSURE AFTER PRIOR TO GIVING IV METOPROLOL. PT REPORTS THAT HE FEELS TIRED AND THAT HIS HEART IS RACING AND HE STATES HE FELT HIS HEART RACING THIS MORNING.
--- NOTE | 2024-05-31 12:20 | NUR ---
PER DR. SERRATO GIVE IV METOPROLOL NOW AND TO FOLLOW UP IN 10-15MINUTES
--- NOTE | 2024-05-31 12:48 | NUR ---
CALLED DR. SERRATO AT 1240 TO NOTIFY HIM OF BLOOD PRESSURE OF 101/50 AND TELE REPORT OF A FLUTTER AT 113 POST 500 ML NS BOLUS OUT OF 1000ML AND 2.5 MG OF IV METOPROLOL.
--- NOTE | 2024-05-31 13:39 | NUR ---
CALLED AND GAVE REPORT TO JONATHAN HERRING FOR PATIENT TO TRANSFER TO PCU 19
[2024-05-31] MEDS ORDERED: dilTIAZem HCL 125 MG in Dextrose 5% 100 ML IV SCH (14:10)
--- NOTE | 2024-05-31 14:28 | NUR ---
TRANSFER NOTE: PT ARRIVED TO PCU-19 VIA BED AT APPROX 1400. PT A/OX4, ABLE TO COMMUNICATE NEEDS. HR SUSTAINING 140'S, AFLUTTER ON TELE. BP 85/61, MAP 67. CALL PLACED TO MD SERRATO REGARDING HR & BP. ORDERS RECEIVED TO START CARDIZEM GTT & ADMINISTER DOSE OF MIDODRINE 10MG NOW; SEE EMAR. PT ON 3L VIA NC ON ARRIVAL, SPO2 >90%. RESPIRATIONS EVEN & UNLABORED. FAMILY AT BEDSIDE. PT EDUCATED ON PLAN OF CARE & ORIENTED TO ROOM. CALL LIGHT IN REACH.
[2024-05-31] MEDS ORDERED: Midodrine 5 MG Tab PO SCH (15:00)
--- NOTE | 2024-05-31 17:42 | NUR ---
END OF SHIFT NOTE: FOLLOWING TRANSFER, DILTIAZEM GTT INITIATED AT 5 MG/HR & TITRATED UP TO 10 MG/HR PER EMAR. SBP HAS IMPROVED TO 100'S, HR HAS DECREASED TO 100-120'S. REMAINS AFLUTTER ON TELE. SPO2 >90% ON ROOM AIR. FAMILY AT BEDSIDE. NO OTHER NEEDS AT THIS TIME, CALL LIGHT IN REACH.
[2024-06-01] VITALS (8 sets, daily range): BP systolic 95–131; BP diastolic 56–76
[2024-06-01 04:30] LABS: Hematocrit 26.3 % (37.0-53.0); Hemoglobin 8.4 g/dL (13.5-17.5); Mean Corpuscular HGB 29.7 pg (26.0-34.0); Mean Corpuscular HGB Conc 31.9 g/dL (31.5-36.5); Mean Corpuscular Volume 93 fL (80-100); Mean Platelet Volume 9.7 fL (9.1-12.4); Platelet Count 213 K/mm3 (150-400); RDW Coefficient Variation 13.9 % (11.7-14.2); RDW Standard Deviation 47.2 fL (35.1-46.3); Red Blood Cell Count 2.83 M/mm3 (4.30-5.90); White Blood Cell Count 7.97 K/mm3 (4.00-11.30)
[2024-06-01 04:51] LABS: Bun/Creatinine Ratio 21.7 (12.0-20.0); Calcium, Blood 8.7 mg/dL (8.5-10.1); Creatinine, Blood 0.64 mg/dL (0.60-1.20); Potassium, Blood 4.3 mmol/L (3.5-5.5)
--- NOTE | 2024-06-01 05:47 | NUR ---
SHIFT SUMMARY PATIENT ALERT, ORIENTED x4. ABLE TO MAKE NEEDS KNOWN TO STAFF. BP STABLE. TELE READING AFIB 80-90s UP TO 100s WITH ACTIVITY. CARDIZEM GTT INFUSING. SEE FLOWSHEET. BP SOFT, MAP >65. PATIENT ON RA WHILE AWAKE, 2L WHILE SLEEPING. USING PILLOWS TO BRACE SELF WHEN COUGHING/DEEP BREATHING. VOIDING USING URINAL, ADEQUATE OUTPUT DURING THE NIGHT. NO OTHER CHANGES, WILL REPORT TO DAY SHIFT RN.
[2024-06-01] MEDS ORDERED: Metoprolol Tartrate 50 MG Tab PO SCH (09:00)
--- NOTE | 2024-06-01 17:04 | NUR ---
ASSUMPTION OF CARE THIS RN RECIEVED REPOART FROM BRITTANI HERRING AT 2753. THIS RN TO ASSUME CARE OF PATIENT.
[2024-06-01] MEDS ORDERED: Metoprolol Tartrate 1 MG/ML 5 ML VIAL IV ONE (17:05)
--- NOTE | 2024-06-01 17:06 | NUR ---
HR / CALL TO PT SITTING UP IN BED W/ MONITOR SHOWING HR INCREASE TO 130s-150s. CALL TO MD SERRATO W/ INSTRUCTION TO GIVE 1X 5MG IV LOPRESSOR PUSH.
--- NOTE | 2024-06-01 17:45 | NUR ---
NEW NURSE TO ASSUME CARE OF PT PT A&O X4, CALM, COOPERATIVE TO CARE. HR WAS IN THE 120'S-130'S THIS AM WITH CARDIZEM GTT RUNNING AT 5, CARDIZEM INCREASED TO 10, PT RECIEVED PO METOPROLOL AND HR DECREASED TO THE 70'S-80'S, CARDIZEM WAS TURNED BACK DOWN TO 5. PTS HR CONTINUED TO BE IN THE 80'S, CARDIZEM GTT WAS TURNED OFF, SEE CRITICAL CARE FLOW SHEET. PT HAD SOFT BP'S THIS AM, WHILE ON CARDIZEM GTT, PT MEDICATED PER EMAR. PT'S BP'S IN THE 120'S-130'S AFTER CARDIZEM WAS SHUT OFF. PT DENIES CP/PRESSURE, NUMB/TINGLING. O2 >92% ON RA, DENIES SOB. PT UP AND EATING/MOVING, HR INCREASED TO THE 130'S, NOTIFIED, ORDER FOR ONE TIME DOSE IV PUSH BETA JUNI. NEVAEH DEY TO ASSUME CARE OF PT. REPORT GIVEN TO RN.
--- NOTE | 2024-06-01 18:59 | NUR ---
PT HR UP TO 140-150'S AFTER ASSUMING CARE, TREATED PER EMAR. PT SWITCHED TO CONSISTENT CARB DIET WITH NORMAL CONSISTENCY PER PT REQUEST. NO OTHER ACUTE CHANGES SINCE ASSUMING CARE OF PT.
[2024-06-02] VITALS (7 sets, daily range): BP systolic 84–106; BP diastolic 51–70
[2024-06-02] MEDS ORDERED: DiphenhydrAMINE HCL/Zinc Acet Cream TOP PRN (03:25)
--- NOTE | 2024-06-02 06:00 | NUR ---
SHIFT SUMMARY PATIENT ALERT, ORIENTED x4. ABLE TO MAKE NEEDS KNOWN TO STAFF. PATIENT DID WAKE EARLY THIS AM BUT REPORTED SOME CONFUSION DUE TO DEEP SLEEP. PATIENT ANSWERING ALL QUESTIONS APPROPRIATELY. CARDIZEM GTT INITIATED FOR ABOUT 1 HOUR AFTER PATIENT'S HR SUSTAINED 150s. SEE FLOWSHEET. BP SOFT AT TIMES, MAP >65. ON RA WITH SPO2 >90%. PATIENT USING URINAL, ADEQUATE OUTPUT. BENADRYL CREAM ORDERED FOR ITCHING/RASH ON BACK. NO OTHER CHANGES DURING THE NIGHT, WILL REPORT TO DAY SHIFT RN.
[2024-06-02] MEDS ORDERED: Metoprolol Tartrate 50 MG Tab PO SCH ×2 (09:00→21:00)
[2024-06-02] MEDS ORDERED: Metoprolol Tartrate 1 MG/ML 5 ML VIAL IV STA (10:24)
[2024-06-02] MEDS ORDERED: GuaiFENesin 600 MG TabCR PO SCH (10:48)
[2024-06-02] MEDS ORDERED: Metoprolol Tartrate 1 MG/ML 5 ML VIAL IV PRN (16:00)
--- NOTE | 2024-06-02 18:24 | NUR ---
SHIFT SUMMARY PT A&O X4, CALM, COOPERTIVE TO CARE. IN AFLUTTER, HR IN THE 70'S-80'S AT REST, PTS HR INCREASES TO THE 120'S-130'S WITH LITTLE MOVEMENT. PT RECIEVING SCHEDULED PO METOPROLOL, DOSE INCREASE TODAY. PT HAS PRN IV PUSH METOPROLOL, GIVEN ONCE TODAY AROUND 1800, PT HR IN THE 110'S AT THIS TIME, BP STABLE. SBP RANGING IN THE 90'S-100'S, MIDODRINE TID. 02 >92% ON RA, DENIES SOB. WILL CONTINUE TO MONITOR PT AND REPORT TO MEDICAL TRANSCRIPTION EDITOR RN.
[2024-06-03] VITALS (10 sets, daily range): BP systolic 94–132; BP diastolic 51–73
[2024-06-03 03:43] LABS: Hematocrit 26.9 % (37.0-53.0); Hemoglobin 8.5 g/dL (13.5-17.5); Mean Corpuscular HGB 29.8 pg (26.0-34.0); Mean Corpuscular HGB Conc 31.6 g/dL (31.5-36.5); Mean Corpuscular Volume 94 fL (80-100); Mean Platelet Volume 9.8 fL (9.1-12.4); Platelet Count 276 K/mm3 (150-400); RDW Coefficient Variation 14.1 % (11.7-14.2); RDW Standard Deviation 47.9 fL (35.1-46.3); Red Blood Cell Count 2.85 M/mm3 (4.30-5.90); White Blood Cell Count 8.43 K/mm3 (4.00-11.30)
[2024-06-03 04:00] LABS: Bun/Creatinine Ratio 22.4 (12.0-20.0); Calcium, Blood 8.7 mg/dL (8.5-10.1); Creatinine, Blood 0.72 mg/dL (0.60-1.20); Potassium, Blood 4.6 mmol/L (3.5-5.5)
--- NOTE | 2024-06-03 05:49 | NUR ---
SHIFT SUMMERY PT IS ALERT AND ORIENTED X4. HE HAS BEEN ST ON THE RECOVERY AGENT. BP WNL. AFEBRILE. PT IS CONTINENT OF BOWEL AND BLADDER. OXYGEN SAT >92%. PT HAS HAD NO ACUTE DISTRESS OVERNIGHT AND THERE HAVE BEEN NO SIGNIFICANT CHANGES TO HIS PLAN OF CARE.
--- NOTE | 2024-06-03 17:29 | NUR ---
SHIFT SUMMARY: PT HAS BEEN A&Ox4, COOPERATIVE W/CARE, ABLE TO MAKE NEEDS KNOWN. PT DENIES SOB, O2 SATS >93% ON RA. PT REPORTS CHEST/RIB PAIN W/DEEP INSPIRATION, DENIES NEED FOR MEDICATION. AFLUTTER ON MONITOR, RATE 110s AT REST THIS AM. PT ASSISTED TO BEDSIDE RECLINER, HR INCREASED TO 150s AND PT WAS MEDICATED PER EMAR W/SCHEDULED MEDICATIONS, HR TRENDED BACK DOWN, HAS BEEN MOSTLY 90s-110 TODAY. PT IS CONTINENT, USING CALL LIGHT TO COMMUNICATE NEEDS.
--- NOTE | 2024-06-03 19:10 | NUR ---
ASSUMPTION OF CARE: RECEIVED REPORT FROM CRISTAL HERRING AT 1910. PT ALERT AND ORIENTED X4. ANSWERS QUESTIONS AND FOLLOWS DIRECTION. PT ON RA WITH SPO2 >92%. DENIES SOB. ENDORSES PAIN WITH COUGHING. DID NOT WANT PRN PAIN MEDICATION AT TIME OF ASSESSMENT. RESEARCH PROGRAM COORDINATOR IN PLACE, AFLUTTER WITH HR 110-150'S WITH ACTIVITY. ASYMPTOMATIC. DENIES CP/PRESSURE, DIZZINESS, LIGHTHEADEDNESS. SBP 130'S. PIVS INTACT AND SALINE LOCKED. TOLERATING PO INTAKE WELL. ABLE TO AMBULATE TO BATHROOM WITH LINE ASSIST. VOIDING YELLOW URINE. BED LOW AND LOCKED, CALL LIGHT IN REACH.
[2024-06-04] VITALS (9 sets, daily range): BP systolic 97–125; BP diastolic 53–99
[2024-06-04 04:16] LABS: Hematocrit 29.2 % (37.0-53.0); Hemoglobin 9.2 g/dL (13.5-17.5); Mean Corpuscular HGB 30.1 pg (26.0-34.0); Mean Corpuscular HGB Conc 31.5 g/dL (31.5-36.5); Mean Corpuscular Volume 95 fL (80-100); Mean Platelet Volume 9.5 fL (9.1-12.4); Platelet Count 307 K/mm3 (150-400); RDW Coefficient Variation 14.2 % (11.7-14.2); RDW Standard Deviation 47.7 fL (35.1-46.3); Red Blood Cell Count 3.06 M/mm3 (4.30-5.90); White Blood Cell Count 6.32 K/mm3 (4.00-11.30)
--- NOTE | 2024-06-04 04:24 | NUR ---
PT HR 145 NO C/O CHEST PAIN, SOB, DIZZINESS, OR PALPITATIONS. BLOOD PRESSURE REMAINS SIMILIAR TO PREVIOUS. PT GIVEN 5MG IV METOPROLOL FOR RATE CONTROL.
[2024-06-04 04:33] LABS: Albumin, Blood 2.8 g/dL (3.4-5.0); Anion Gap 8 mmol/L (3-11); Blood Urea Nitrogen 14 mg/dL (8-24); Bun/Creatinine Ratio 17.3 (12.0-20.0); CO2, Blood 29 mmol/L (21-32); Calcium, Blood 8.8 mg/dL (8.5-10.1); Chloride, Blood 109 mmol/L (98-108); Creatinine, Blood 0.81 mg/dL (0.60-1.20); Glomerular Filtration Rate 94 (60-); Glucose, Blood 108 mg/dL (70-99); Phosphorus, Blood 3.5 mg/dL (2.5-4.9); Potassium, Blood 4.5 mmol/L (3.5-5.5); Sodium, Blood 141 mmol/L (136-145)
--- NOTE | 2024-06-04 05:28 | NUR ---
SHIFT SUMMARY: PT A&O X 4. ON RA WITH SPO2 >92%. DENIES SOB. PT AFLUTTER WITH HR 80'S-150'S. DENIES CP/PRESSURE. SBP 90-100'S. MAP >65. DR. MCKEON AWARE OF HR, NO NEW ORDERS CURRENTLY. MEDICATED WITH PRN LOPRESSOR. NO CHANGE. PT ASYMPTOMATIC. AFEBRILE. VOIDING YELLOW URINE INTO URINAL. NO BM THIS SHIFT. ABLE TO AMBULATE TO COMMODE WITH ASSIST WHEN NEEDED. TOLERATING PO INTAKE. PIV'S INTACT AND SALINE LOCKED. BED LOW AND LOCKED, CALL LIGHT IN REACH.
[2024-06-04] MEDS ORDERED: NS 500 ML IV ONE (06:00)
--- NOTE | 2024-06-04 06:13 | NUR ---
UPDATE: PT RECEIVING 500 ML BOLUS FOR HR. CURRENTLY INFUSING
--- NOTE | 2024-06-04 18:06 | NUR ---
SHIFT SUMMARY: PT HAS BEEN A&Ox4, COOPERATIVE W/CARE, ABLE TO MAKE NEEDS KNOWN. PT REPORTS IMPROVEMENT TO CHEST/RIB PAIN AND COUGH. PT DENIES SOB, O2 SATS >93% ON RA. AFLUTTER CONTINUES ON MONITOR, RATE RANGING FROM 90s-150, SUSTAINING MOSTLY IN 100-120s. HR RESPONDS TO METOPROLOL BUT DOES INCREASE MEDICATION WEARS OFF. TODAY, METOPROLOL ORDER WAS CHANGED FROM TARTRATE TO SUCCINATE, SCHEDULED TO START TONIGHT. PT SBA TO RECLINER AND AMBULATED AROUND UNIT TODAY W/PT USING A FWW, TOLERATED WELL. PT REPORTS DENTAL PAIN WHEN EATING. DENTAL HYGIENE CONSULT PLACED AND PERFORMED TODAY. DR FRAIRE CONTACTED RE: INITIAL CONSULT AND PLAN OF CARE. PER DR FRAIRE, THERE IS NO FX IN JAW THAT REQUIRES INTERVENTION AND PT SHOULD SEE HIS DENTIST IF HAVING DENTAL PAIN. AT THIS TIME, PT IS RESTING QUIETLY IN RECLINER W/VISITORS IN ROOM. CALL LIGHT IN REACH.
[2024-06-04] MEDS ORDERED: Metoprolol Succinate 50 MG TABCR PO SCH (21:00)
[2024-06-05] VITALS (7 sets, daily range): BP systolic 98–127; BP diastolic 50–83
--- NOTE | 2024-06-05 04:37 | NUR ---
SHIFT SUMMARY THIS RN ASSUMED CARE OF PATIENT AT 1900. PT A&O X4. ABLE TO MAKE NEEDS KNOWN. AFIB/FLUTTER ON MONITOR WITH HR 70-120'S. DEPENDENT ON ACTIVITY. DENIES CHEST PAIN/PRESSURE. CONTINUES TO COMPLAIN ABOUT DENTAL/TOOTH PAIN, MD'S AWARE. OTHERWISE VSS. USING URINAL INDEPENDENTLY IN BED. BED IN LOWEST POSITION AND CALL LIGHT WITHIN REACH. THIS RN WILL REPORT TO ONCOMING DAYSHIFT RN.
[2024-06-05] MEDS ORDERED: Apixaban 5 MG Tab PO SCH ×2 (12:45→21:00)
--- NOTE | 2024-06-05 17:45 | NUR ---
SHIFT SUMMARY PT A&Ox4, CALLS AND COMMUNICATES NEEDS APPROPRIATELY, FORGETFUL AT TIMES. BP STABLE, SOFT AT TIMES (MAP> 65), AFLUTTER 90-150'S, DENIES CP/PRESSURE. SpO2> 92% RA, REPORT MILD SOB WHEN HR 150's. 1 ASSIST WITH FWW FOR AMBULATION. DENIES NEED FOR PAIN MEDICATION. NO OTHER EVENTS, WILL REPORT TO ONCOMING RN.
[2024-06-05] MEDS ORDERED: Digoxin 0.25 MG Tab PO SCH (20:00)
[2024-06-06] VITALS (9 sets, daily range): BP systolic 91–140; BP diastolic 48–75
[2024-06-06 04:41] LABS: Hematocrit 30.1 % (37.0-53.0); Hemoglobin 9.4 g/dL (13.5-17.5)
[2024-06-06 04:58] LABS: Anion Gap 11 mmol/L (3-11); Blood Urea Nitrogen 14 mg/dL (8-24); Bun/Creatinine Ratio 18.2 (12.0-20.0); CO2, Blood 28 mmol/L (21-32); Calcium, Blood 9.2 mg/dL (8.5-10.1); Chloride, Blood 107 mmol/L (98-108); Creatinine, Blood 0.77 mg/dL (0.60-1.20); Glomerular Filtration Rate 96 (60-); Glucose, Blood 104 mg/dL (70-99); Phosphorus, Blood 3.9 mg/dL (2.5-4.9); Potassium, Blood 4.5 mmol/L (3.5-5.5); Sodium, Blood 141 mmol/L (136-145)
--- NOTE | 2024-06-06 05:07 | NUR ---
SHIFT SUMMARY THIS RN ASSUMED CARE OF PATIENT AT 1900. A&O X4. ABLE TO MAKE NEEDS KNOWN. AFIB/FLUTTER ON MONITOR WITH HR 70-150'S. HR ONLY IN THE 150'S BRIEFLY WITH AMBULATION. OTHERWISE TREND HAS BEEN AVERAGING 80-100'S WHILE RESTING. OTHER VITALS STABLE. USING URINAL IN BED INDEPENDENTLY. BED IN LOWEST POSITION AND CALL LIGHT WITHIN REACH. THIS RN WILL REPORT TO ONCOMING DAYSHIFT RN.
[2024-06-06] MEDS ORDERED: Digoxin 0.125 MG Tab PO SCH (09:00)
[2024-06-06] MEDS ORDERED: Metoprolol Succinate 50 MG TABCR PO SCH (14:00)
--- NOTE | 2024-06-06 18:05 | NUR ---
SHIFT SUMMARY NEURO: PT REMAINED A/OX4 T/O SHIFT. OBEYS COMMANDS, MAKES NEEDS KNOWN. PT DENIES PAIN. CARDIAC: HR 90'S-150'S, AFLUTTER, BP 90'S-140'S SYSTOLIC. ADDITIONAL DOSE OF METORPROLOL ORDERED THIS AFTERNOON DUE TO INCREASED HR. SYSTOLIC DROPPED TO 91, DR ELLISON NOTIFIED. PT DENIES CHEST PAIN/PRESSURE/SOB. HR UP INTO 150S WHEN WORKING WITH OT TODAY AND AMBULATING AROUND UNIT WITH WALKER. RESPIRATORY: WNL MUSCULOSKELETAL: AMBULATES INDEPENDENTLY IN ROOM, USES WALKER FOR LONGER DISTANCES. SBA FOR LINES, CORDS, TELE. GI/: CONTINENT OF URINE AND STOOL SKIN: PT HAS FACIAL BRUISING FROM INITIAL FALL, HEALING
[2024-06-07 05:10] VITALS: BP 126/79
--- NOTE | 2024-06-07 05:25 | NUR ---
SHIFT SUMMARY THIS RN ASSUMED CARE OF PATIENT AT 1900. PT A&O X4. ABLE TO MAKE NEEDS KNOWN. AFIB WITH HR 80-100'S. INCREASED HR WITH ACTIVITY. BP STABLE T/O THIS SHIFT. OTHER VSS. PT USING URINAL INDEPENDENTLY IN BED. NO ACUTE CHANGES OVERNIGHT. BED IN LOWEST POSITION AND CALL LIGHT WITHIN REACH. THIS RN WILL REPORT TO ONCOMING DAYSHIFT RN.
[2024-06-07 09:17] VITALS: BP 100/70
[2024-06-07 11:20] VITALS: BP 100/53
--- NOTE | 2024-06-07 11:55 | NUR ---
Dr. Casas rounding on the pt right now.
--- NOTE | 2024-06-07 15:02 | NUR ---
SUPPORTIVE VISIT: MATTHEW DENIES ANY ACUTE NEEDS AT THIS TIME. PC TO REMAIN AVAILABLE NEEDED.
[2024-06-07 15:37] VITALS: BP 105/59
--- NOTE | 2024-06-07 18:41 | NUR ---
SHIFT SUMMARY PT REMAINED A/OX4, BP REMAINED STABLE, HEART RATE 110'S-150'S WITH ACTIVITY, NO ACUTE EVENTS THIS SHIFT.
[2024-06-07 20:07] VITALS: BP 130/66
[2024-06-07 23:45] VITALS: BP 105/66
[2024-06-08] VITALS (22 sets, daily range): BP systolic 90–138; BP diastolic 57–87
[2024-06-08 05:54] LABS: Hematocrit 31.3 % (37.0-53.0); Hemoglobin 9.7 g/dL (13.5-17.5); Mean Corpuscular HGB 29.8 pg (26.0-34.0); Mean Corpuscular Volume 96 fL (80-100); Mean Platelet Volume 9.2 fL (9.1-12.4); Platelet Count 312 K/mm3 (150-400); RDW Standard Deviation 51.3 fL (35.1-46.3); Red Blood Cell Count 3.25 M/mm3 (4.30-5.90); White Blood Cell Count 5.65 K/mm3 (4.00-11.30)
--- NOTE | 2024-06-08 06:14 | NUR ---
SHIFT SUMMARY PATIENT ALERT AND ORIENTED X4. PATIENT DENIES ANY CHEST PAIN OR SHORTNESS OF BREATH. REPORTS SOME SLIGHT DIZZINESS UPON STANDING BUT IS ABLE TO WALK WITH MINIMAL UNSTEADINESS. PATIENT CONTINUES IN AFIB WITH RATE REACHING THE 150'S WHEN GOING TO THE RESTROOM. VITAL SIGNS OTHERWISE STABLE. PATIENT ON ROOM AIR WITH SPO2 >90%. WILL CONTINUE TO MONITOR. CALL LIGHT WITHIN REACH.
[2024-06-08 06:19] LABS: Bun/Creatinine Ratio 24.7 (12.0-20.0); Calcium, Blood 8.9 mg/dL (8.5-10.1); Creatinine, Blood 0.77 mg/dL (0.60-1.20); Potassium, Blood 4.2 mmol/L (3.5-5.5)
[2024-06-08] MEDS ORDERED: propofoL 50 ML IV ONE (14:27)
[2024-06-08] MEDS ORDERED: Benzocaine Oral Spray 0.5ML UD ONE (14:33)
[2024-06-08] MEDS ORDERED: NS 1,000 ML IV ONE (14:54)
--- NOTE | 2024-06-08 15:45 | NUR ---
PT AWAKE AND CONVERSING APPROPRIATELY POST PROCEDURE, VSS ON RA.
--- NOTE | 2024-06-08 16:06 | NUR ---
REPORT GIVEN TO RONEY; ALL QUESTIONS ANSWERED. PT TRANSFERRED BACK TO PCU 19 VIA W/C, CONDITION STABLE.
--- NOTE | 2024-06-08 16:16 | NUR ---
PT RETURNS FROM OPERATIONS RECRUITER POST YOLI AND CARDIOVERSION. PT IS IN A SR, HR 68. VITALS STABLE. PT IS ALERT AND ORIENTED. DENIES PAIN. PT ABLE TO TRANSFER FROM WHEELCHAIR TO CHAIR IN ROOM WITH SBA.
--- NOTE | 2024-06-08 18:15 | NUR ---
SHIFT SUMMARY NEURO: PT A/OX4 T/O SHIFT. MAKES NEEDS KNOWN, OBEYS COMMANDS. PT REPORTS NO PAIN, BUT SORENESS IN CHEST FROM CPR PRIOR TO ADMISSION. CARDIO: BP REMAINED STABLE, HR 100'S-150'S WITH ANY DEGREE OF ACTIVITY. PT STILL IN AFLUTTER. PT HAD YOLI AND CARDIOVERSION THIS AFTERNOON AND WAS CONVERTED TO A SINUS RHYTHM WITH A HR IN 70'S. PT TOLERATED PROCEDURE WELL. HAS BEEN EATING AND DRINKING WITHOUT ISSUE SINCE PROCEDURE. RESPIRATORY: NO CHANGES, PT SATTING ABOVE 95% ON RA. LUNG SOUNDS CLEAR. GI/: PT REMAINS CONTINENT OF URINE AND STOOL. INTEGUMENTARY: PERIORBITAL BRUISING CONTINUES TO HEAL.
[2024-06-09 00:08] VITALS: BP 105/61
[2024-06-09 03:39] VITALS: BP 113/71
[2024-06-09 04:07] LABS: BASOPHILS ABSOLUTE AUTO 0.03 K/mm3 (0.00-0.23); BASOPHILS PERCENT AUTO 1 % (0-2); EOSINOPHILS ABSOLUTE AUTO 0.22 K/mm3 (0.00-0.68); EOSINOPHILS PERCENT AUTO 4 % (0-6); Hematocrit 29.2 % (37.0-53.0); IMMATURE GRAN ABSOLUTE AUTO 0.02 K/mm3 (0.00-0.10); IMMATURE GRAN PERCENT AUTO 0 % (0-1); LYMPHOCYTES ABSOLUTE AUTO 1.13 K/mm3 (0.84-5.20); LYMPHOCYTES PERCENT AUTO 19 % (21-46); MONOCYTES ABSOLUTE AUTO 0.49 K/mm3 (0.16-1.47); MONOCYTES PERCENT AUTO 8 % (4-13); Mean Corpuscular HGB 29.9 pg (26.0-34.0); Mean Corpuscular HGB Conc 30.8 g/dL (31.5-36.5); Mean Corpuscular Volume 97 fL (80-100); Mean Platelet Volume 9.2 fL (9.1-12.4); NEUTROPHILS PERCENT AUTO 68 % (41-73); Platelet Count 326 K/mm3 (150-400); RDW Coefficient Variation 15.3 % (11.7-14.2); RDW Standard Deviation 52.9 fL (35.1-46.3); Red Blood Cell Count 3.01 M/mm3 (4.30-5.90); White Blood Cell Count 5.99 K/mm3 (4.00-11.30)
[2024-06-09 04:26] LABS: Bun/Creatinine Ratio 22.9 (12.0-20.0); Calcium, Blood 8.6 mg/dL (8.5-10.1); Creatinine, Blood 0.87 mg/dL (0.60-1.20); Potassium, Blood 4.2 mmol/L (3.5-5.5)
--- NOTE | 2024-06-09 06:09 | NUR ---
SHIFT SUMMARY PATIENT ALERT AND ORIETNED X4. HAD NO COMPLAINTS OF PAIN OR SHORTNESS OF BREATH. ON ROOM AIR WITH SPO2 >90%. VITAL SIGNS STABLE, CONTINUES IN SINUS RHYTHM WITH NO EVENTS ON TELE. PATIENT REFUSED DAILY WEIGHT WITH THIS RN THIS MORNING. WILL CONTINUE TO MONITOR. CALL LIGHT WITHIN REACH.
[2024-06-09] MEDS ORDERED: Metoprolol Succinate 50 MG TABCR PO SCH (09:00)
[2024-06-09 09:52] VITALS: BP 108/69
--- NOTE | 2024-06-09 17:22 | NUR ---
PT HAS BEEN RESTING WELL BETWEEN CHAIR AND BED T/O THE DAY. HE DENIES CP OR SOB. VSS. HE HAS BEEN MADE MEDICAL WITH TELE STATUS. PT WORKED WELL WITH PHYSICAL THERAPY TODAY. TABATHA MCGOVERN FROM CASE MANAGEMENT WAS IN TO SEE PT TODAY, TO DISCUSS DISCHARGE HOME. PT LIVES IN [facility] HE REPORTS THAT WATER, HEAT AND POWER ARE CURRENTLY OFF TO THE TRAILER HE HAD HIS BROTHER "SHUT IT DOWN" HE WAS PLANNING TO TRANSFER TO SNF. DISCUSSION OF D/C CAME LATE IN THE DAY, PT REPORTS THAT HE WOULD NEED TO GO OUT IN THE DARK TO ATTEMPT TO TURN ON AMENITES, AND IF WAS NOT ABLE TO TURN THEM ON TONIGHT HE IS WILLING TO SLEEP IN THE TRAILER WITHOUT HEAT OR POWER.
[2024-06-09 17:35] VITALS: BP 120/55
[2024-06-09 20:35] VITALS: BP 121/57
[2024-06-10 04:17] VITALS: BP 121/66
[2024-06-10 04:44] LABS: BASOPHILS ABSOLUTE AUTO 0.04 K/mm3 (0.00-0.23); BASOPHILS PERCENT AUTO 1 % (0-2); EOSINOPHILS ABSOLUTE AUTO 0.19 K/mm3 (0.00-0.68); EOSINOPHILS PERCENT AUTO 4 % (0-6); Hematocrit 28.3 % (37.0-53.0); Hemoglobin 8.8 g/dL (13.5-17.5); IMMATURE GRAN ABSOLUTE AUTO 0.01 K/mm3 (0.00-0.10); IMMATURE GRAN PERCENT AUTO 0 % (0-1); LYMPHOCYTES ABSOLUTE AUTO 1.22 K/mm3 (0.84-5.20); LYMPHOCYTES PERCENT AUTO 24 % (21-46); MONOCYTES ABSOLUTE AUTO 0.41 K/mm3 (0.16-1.47); MONOCYTES PERCENT AUTO 8 % (4-13); Mean Corpuscular HGB 29.9 pg (26.0-34.0); Mean Corpuscular HGB Conc 31.1 g/dL (31.5-36.5); Mean Corpuscular Volume 96 fL (80-100); NEUTROPHILS ABSOLUTE AUTO 3.14 K/mm3 (1.96-9.15); NEUTROPHILS PERCENT AUTO 63 % (41-73); Platelet Count 286 K/mm3 (150-400); RDW Coefficient Variation 15.3 % (11.7-14.2); RDW Standard Deviation 52.6 fL (35.1-46.3); Red Blood Cell Count 2.94 M/mm3 (4.30-5.90); White Blood Cell Count 5.01 K/mm3 (4.00-11.30)
[2024-06-10 05:12] LABS: Bun/Creatinine Ratio 23.3 (12.0-20.0); Creatinine, Blood 0.73 mg/dL (0.60-1.20); Potassium, Blood 4.2 mmol/L (3.5-5.5)
--- NOTE | 2024-06-10 05:34 | NUR ---
SHIFT SUMMARY ASSUMED CARE OF PT AT 1900. PT A&O4, COOPERATIVE IN CARE BUT CONCERNED HE IS NOT STRONG ENOUGH TO GO HOME. PT ABLE TO MAKE NEEDS KNOWN AND CALLS FOR ASSISTANCE APPROPRIATELY. PT DENIES CP/PRESSURE AND SOB. VSS AND PT ON RA. BED IN LOWEST POSITION AND CALL LIGHT WITHIN REACH.
[2024-06-10 07:43] VITALS: BP 120/69
[2024-06-10] MEDS ORDERED: METO100ER PO (07:52)
[2024-06-10] MEDS ORDERED: ELIQUIS5 M2 PO (07:52)
--- NOTE | 2024-06-10 11:57 | NUR ---
DISCHARGE: PATIENT ALERT AND ORIENTED. DENIES NUMBNESS/TINGLING. DENIES PAIN. MOVING ALL EXTREMITIES AND UP IND IN ROOM. TELE SHOWING SR 70'S. SBP 120'S. PPP. DENIES CHEST PAIN/PRESSURE/PALPITATIONS. IV SALINE LOCKED. NO EDEMA NOTED. ON ROOM AIR, LUNGS SOUNDS CLEAR. DENIES COUGH. STATES MUCINEX HAS BEEN HELPING HIM KEEP HIS SINUSES CLEAR. BOWEL TONES PRESENT. DENIES ABDOMINAL PAIN/NAUSEA. TOLERATING DIET. DENIES ISSUES WITH VOIDING. SKIN OVERALL C/D/I WITH FACIAL BRUISING. PLAN FOR DC TODAY: THIS RN REVIEWED ALL DISCHARGE INSTRUCTIONS INCLUDING. NEW MEDICATIONS, DOSAGES, WHEN TO TAKE, TO HOD CARRIER FROM PHARMACY, SIGNS AND SYMPTOMS OF WHEN TO RETURN, RICARDO COUPON, FINDING A PCP, LOCAL PCP LIST, COMMUNITY RESOURCES, CARDIOLOGY REF, OUTPATIENT ONCOLOGY FOLLOW UP AND OVERALL ADMITTING DIAGNOSIS WELL BLOOD THINNER PRECAUTIONS. IV REMOVED WNL. PATIENT TAKEN OUT TO FAMILY VIA WHEELCHAIR.
== END 2024-06-10 11:00 | disposition home or self-care (01) | DRG 163 ==
LOC: ER 13:37 → PCU 16:31 → ICUE 16:31 → PCU 05-29 02:27 → MEDS 05-30 11:06 → PCU 05-31 14:04
PROVIDERS: Emergency Medicine; Family Medicine; Internal Medicine; Internal Medicine Critical Care Medicine; ADMIT Internal Medicine
PROC: 02CR3ZZ Extirpation of Matter from Left Pulmonary Artery, Percutaneous Approach (ICD-10-PCS; principal; 2024-05-23)
PROC: B5191ZZ Fluoroscopy of Inferior Vena Cava using Low Osmolar Contrast (ICD-10-PCS; 2024-05-23)
PROC: 06H03DZ Insertion of Intraluminal Device into Inferior Vena Cava, Percutaneous Approach (ICD-10-PCS; 2024-05-23)
PROC: 5A09357 Assistance with Respiratory Ventilation, Less than 24 Consecutive Hours, Continuous Positive Airway Pressure (ICD-10-PCS; 2024-05-23)
PROC: 5A1945Z Respiratory Ventilation, 24-96 Consecutive Hours (ICD-10-PCS; 2024-05-23)
PROC: 0BH17EZ Insertion of Endotracheal Airway into Trachea, Via Natural or Artificial Opening (ICD-10-PCS; 2024-05-23)
PROC: 3E043XZ Introduction of Vasopressor into Central Vein, Percutaneous Approach (ICD-10-PCS; 2024-05-23)
PROC: 2Y41X5Z Packing of Nasal Region using Packing Material (ICD-10-PCS; 2024-05-23)
PROC: 0HQ1XZZ Repair Face Skin, External Approach (ICD-10-PCS; 2024-05-23)
PROC: 0T9B70Z Drainage of Bladder with Drainage Device, Via Natural or Artificial Opening (ICD-10-PCS; 2024-05-23)
PROC: 3E033XZ Introduction of Vasopressor into Peripheral Vein, Percutaneous Approach (ICD-10-PCS; 2024-05-23)
PROC: 30233N1 Transfusion of Nonautologous Red Blood Cells into Peripheral Vein, Percutaneous Approach (ICD-10-PCS; 2024-05-26)
PROC: 5A2204Z Restoration of Cardiac Rhythm, Single (ICD-10-PCS; 2024-06-08)
DX: I26.02 Saddle embolus of pulmonary artery with acute cor pulmonale (principal); J96.01 Acute respiratory failure with hypoxia; S22.41XA Multiple fractures of ribs, right side, initial encounter for closed fracture; S02.92XA Unspecified fracture of facial bones, initial encounter for closed fracture; D62 Acute posthemorrhagic anemia; E87.1 Hypo-osmolality and hyponatremia; I48.92 Unspecified atrial flutter; I82.412 Acute embolism and thrombosis of left femoral vein; I82.432 Acute embolism and thrombosis of left popliteal vein; I82.442 Acute embolism and thrombosis of left tibial vein; I82.411 Acute embolism and thrombosis of right femoral vein; S01.112A Laceration without foreign body of left eyelid and periocular area, initial encounter; R04.0 Epistaxis; W18.30XA Fall on same level, unspecified, initial encounter; E03.8 Other specified hypothyroidism; E87.6 Hypokalemia; I48.0 Paroxysmal atrial fibrillation; I48.91 Unspecified atrial fibrillation; Z66 Do not resuscitate; R00.1 Bradycardia, unspecified; Z91.199 Patient's noncompliance with other medical treatment and regimen due to unspecified reason; Z88.8 Allergy status to other drugs, medicaments and biological substances; Z79.01 Long term (current) use of anticoagulants
CPT/HCPCS: 12011; 31500; 36415; 36430; 36556; 37184; 37191; 51702; 70450; 70486; 71045; 71260; 75743; 75825; 76937; 80048; 80053; 80069; 81001; 82330; 82803; 82947; 83735; 84100; 84439; 84443; 84484; 85014; 85018; 85025; 85027; 85049; 85520; 85610; 85730; 86850; 86900; 86901; 86923; 90471; 90715; 92960; 93005; 93010; 93306; 93312; 93325; 93970; 94002; 94003; 94640; 94660; 94664; 94760; 94762; 96365-59; 96375-59; 97110; 97116; 97162; 97166; 97530; 97535; 99152; 99153; 99285-25; A9270; C1751; C1757; C1769; C1880; C1887; C1894; G0103; J0461; J0690; J1171; J1644; J2250; J2371; J2704; J3010; J3480; J7030; J7040; J7050; J7060; J7120; P9016; Q9967

== ENCOUNTER 2024-10-29 11:52 | Observation (INO) | payer MEDICARE ==
[~2024-10-29] VITALS: Ht 188 cm; Wt 74.3 kg
[~2024-10-29 11:52] MED LIST: ELIQUIS5 M2 PO; METO100ER PO
[2024-10-29] MEDS ORDERED: Acetaminophen 500 MG Tab PO ONE (13:35)
[2024-10-29 13:49] LABS: BASOPHILS ABSOLUTE AUTO 0.03 K/mm3 (0.00-0.23); BASOPHILS PERCENT AUTO 0 % (0-2); EOSINOPHILS ABSOLUTE AUTO 0.01 K/mm3 (0.00-0.68); EOSINOPHILS PERCENT AUTO 0 % (0-6); Hematocrit 39.9 % (37.0-53.0); Hemoglobin 13.4 g/dL (13.5-17.5); IMMATURE GRAN ABSOLUTE AUTO 0.03 K/mm3 (0.00-0.10); IMMATURE GRAN PERCENT AUTO 0 % (0-1); LYMPHOCYTES ABSOLUTE AUTO 0.82 K/mm3 (0.84-5.20); LYMPHOCYTES PERCENT AUTO 9 % (21-46); MONOCYTES ABSOLUTE AUTO 0.71 K/mm3 (0.16-1.47); MONOCYTES PERCENT AUTO 8 % (4-13); Mean Corpuscular HGB 31.8 pg (26.0-34.0); Mean Corpuscular HGB Conc 33.6 g/dL (31.5-36.5); Mean Corpuscular Volume 95 fL (80-100); Mean Platelet Volume 10.2 fL (9.1-12.4); NEUTROPHILS ABSOLUTE AUTO 7.45 K/mm3 (1.96-9.15); NEUTROPHILS PERCENT AUTO 82 % (41-73); Platelet Count 155 K/mm3 (150-400); RDW Coefficient Variation 12.9 % (11.7-14.2); RDW Standard Deviation 43.8 fL (35.1-46.3); Red Blood Cell Count 4.22 M/mm3 (4.30-5.90); White Blood Cell Count 9.05 K/mm3 (4.00-11.30)
[2024-10-29] MEDS ORDERED: LORazepam 2 MG/ML 1ML Injection IV ONE (14:05)
[2024-10-29 14:07] LABS: Albumin, Blood 4.2 g/dL (3.4-5.0); Albumin/Globulin Ratio 1.2 (0.8-1.8); Bilirubin, Total 0.6 mg/dL (0.1-1.0); Bun/Creatinine Ratio 35.4 (12.0-20.0); Calcium, Blood 9.2 mg/dL (8.5-10.1); Creatinine, Blood 0.65 mg/dL (0.60-1.20); Globulin, Blood 3.4 g/dL (2.2-4.0); Potassium, Blood 3.9 mmol/L (3.5-5.5); Total Protein, Blood 7.6 g/dL (6.4-8.2)
[2024-10-29 14:35] LABS: Source, Urine Clean Catch
[2024-10-29 14:45] LABS: Appearance, Urine Clear (Clear); Bilirubin, Urine Neg (Neg); Blood, Urine 3+ (Neg); Glucose Qualitative, Urine Neg (Neg); Ketones, Urine 2+ (Neg); Leukocyte Esterase, Urine Neg (Neg); Nitrite, Urine Neg (Neg); Protein, Urine 2+ (Neg); Specific Gravity, Urine 1.025 (1.003-1.022); Urobilinogen, Urine NORM (Normal)
[2024-10-29 15:02] LABS: Bacteria Many /hpf; Mucus Light (0-Heavy); Squamous Epithelial Cells Rare /hpf (Few)
[2024-10-29] MEDS ORDERED: CefTRIAXone Sodium 1,000 MG in NS 100 ML IV ONE (18:05)
[2024-10-29 23:23] VITALS: BP 147/92
[2024-10-29] MEDS ORDERED: ACET325 PO (23:36)
[2024-10-30] MEDS ORDERED: NS 1,000 ML IV SCH (01:00)
--- NOTE | 2024-10-30 03:05 | NUR ---
SHIFT SUMMARY PATIENT APPEARS TO BE RESTING COMFORTABLY AT THIS TIME NS IS INFUSING WITHOUT COMPLICATIONS. TELEMETRY IS IN PLACE. HE IS RUNNING NSR AT 86. PATIENT IS COMPLAINING OF LEG NUMBNESS. HE DESCRIBES NUMBNESS TO HIS WAIST AND CANNOT MOVE HIS LEGS. PATIENT COULD NOT URINATE EARLIER IN THE SHIFT. BLADDER SCAN WAS COMPLETED AND PATIENT WAS STRAIGHT CATHED FOR 1000 ML OF URINE PER MD'S ORDER. WILL SCAN AGAIN AT 0600. 24 HOUR URINE COLLECTION WILL BE STARTED WITH NEXT VOID. PATIENT IS ORIENTED X4. HE HAS HIS CALL LIGHT WITHIN REACH. SAFETY PRECAUTIONS ARE BEING MAINTAINED
[2024-10-30 03:40] VITALS: BP 131/76
[2024-10-30 06:34] LABS: BASOPHILS ABSOLUTE AUTO 0.06 K/mm3 (0.00-0.23); BASOPHILS PERCENT AUTO 1 % (0-2); EOSINOPHILS ABSOLUTE AUTO 0.22 K/mm3 (0.00-0.68); EOSINOPHILS PERCENT AUTO 3 % (0-6); Hemoglobin 13.1 g/dL (13.5-17.5); IMMATURE GRAN ABSOLUTE AUTO 0.02 K/mm3 (0.00-0.10); IMMATURE GRAN PERCENT AUTO 0 % (0-1); LYMPHOCYTES ABSOLUTE AUTO 1.17 K/mm3 (0.84-5.20); LYMPHOCYTES PERCENT AUTO 17 % (21-46); MONOCYTES ABSOLUTE AUTO 0.57 K/mm3 (0.16-1.47); MONOCYTES PERCENT AUTO 8 % (4-13); Mean Corpuscular HGB 31.4 pg (26.0-34.0); Mean Corpuscular HGB Conc 32.8 g/dL (31.5-36.5); Mean Corpuscular Volume 96 fL (80-100); NEUTROPHILS ABSOLUTE AUTO 4.99 K/mm3 (1.96-9.15); NEUTROPHILS PERCENT AUTO 71 % (41-73); Platelet Count 148 K/mm3 (150-400); RDW Standard Deviation 45.6 fL (35.1-46.3); Red Blood Cell Count 4.17 M/mm3 (4.30-5.90); White Blood Cell Count 7.03 K/mm3 (4.00-11.30)
[2024-10-30 07:19] LABS: Alanine Aminotransfer (ALT/SGP 15 U/L (12-78); Albumin, Blood 3.8 g/dL (3.4-5.0); Albumin/Globulin Ratio 1.2 (0.8-1.8); Alk Phos 103 U/L (50-136); Anion Gap 11 mmol/L (3-11); Aspartate Aminotrans (AST/SGOT 16 U/L (12-37); Bilirubin, Total 0.4 mg/dL (0.1-1.0); Blood Urea Nitrogen 18 mg/dL (8-24); Bun/Creatinine Ratio 24.8 (12.0-20.0); CO2, Blood 25 mmol/L (21-32); Calcium, Blood 9.2 mg/dL (8.5-10.1); Chloride, Blood 107 mmol/L (98-108); Creatinine, Blood 0.73 mg/dL (0.60-1.20); Globulin, Blood 3.3 g/dL (2.2-4.0); Glomerular Filtration Rate 97 (60-); Glucose, Blood 91 mg/dL (70-99); Potassium, Blood 3.7 mmol/L (3.5-5.5); Sodium, Blood 139 mmol/L (136-145); Total Protein, Blood 7.1 g/dL (6.4-8.2)
[2024-10-30 07:33] VITALS: BP 144/80
--- NOTE | 2024-10-30 08:23 | NUR ---
ASSUMPTION OF CARE: ASSUMED CARE OF PATIENT. AWAKE DURING SHIFT CHANGE REPORT. LYING IN BED c HOB ELEVATED. BREATHING EVEN AND UNLABORED. ROOM AIR. TELE SINUS @ 73. BED IN LOWEST POSITION. CALL LIGHT WITHIN REACH. NO ACUTE NEEDS.
[2024-10-30] MEDS ORDERED: LORazepam 2 MG/ML 1ML Injection IV ONE (08:35)
--- NOTE | 2024-10-30 08:40 | NUR ---
RADIOLOGY TRANSPORT TO BEDSIDE; PT STATED HE CANNOT TRANSFER DUE TO PAIN. CALL TO DR. ARZATE; RECEIVED T.O. FOR SAME THING GIVEN IN ED YESTERDAY: 2MG LORAZEPAM ONCE; CONFIRMED. ORDER PLACED AND GIVEN PRIOR TO PT TRANSPORT TO CT.
[2024-10-30] MEDS ORDERED: Enoxaparin 40 MG/0.4 ML SYR SC SCH (09:00)
--- NOTE | 2024-10-30 10:23 | NUR ---
DR ARZATE TO BEDSIDE TO NOTIFY PATIENT OF CT RESULTS.
[2024-10-30 11:44] VITALS: BP 119/78
[2024-10-30] MEDS ORDERED: Acetaminophen 325 MG TABLET PO PRN (15:25)
[2024-10-30] MEDS ORDERED: ALPRAZolam 1 MG Tab PO PRN (15:25)
--- NOTE | 2024-10-30 15:33 | NUR ---
SYMPTOM MANAGEMENT - PT NOT ABLE TO MOVE BLE, NEW THIS WEEK. SHOULDER, NECK, BACK AND TRUNK PAIN IS 2/10 AT REST. ANY COUGHING, DEEP BREATHING PAIN INCREASES TO 8/10. MATTHEW MANAGES WITH THC AT HOME. PROVIDER TO PLACE ORDERS FOR STEROIDS FOR INFLAMMATION, TYLENOL, MARINOL AND LORAZEPAM. CARE MANAGEMENT REPORTS ADMISSION TO [facility] TOMORROW 10/31. PT HAS ASKED ABOUT [facility] [place]. THIS PC RN DIRECTED PT AND HIS FRIEND LINWOOD TO THE [place] [facility].
--- NOTE | 2024-10-30 15:36 | NUR ---
Spiritual Care Consult | Requested by Dr. Ronaldo Fields P.t is sitting up in a bed. A male family memeber is at bedside. Pt. welcomes my visit. Pt. is unsettled about his condition, and quickly asks if this fitter hand believes in " with Dignity." In my response I seek to normalize the Pt. experience. Facilitate a life review, and engage in matters of life. Pt. displays evidence of being engaged, aware, and very spiritual. Prayed with Pt. Pt. displayed evidence of tears during the time of prayer. When Parish Worker came in this fitter hand excuses himself. Pt. verbalized gratitude for the spiritual care visit.
--- NOTE | 2024-10-30 15:49 | NUR ---
BANKING REPRESENTATIVE DOCUMENTATION REVIEW: THIS RN HAS PERSONALLY REVIEWED DOCUMENTATION BY STUDENT NURSE. ALL CONTROLLED SUBSTANCES GIVEN BY AND APPROPRIATE IV PUSHES DIRECTLY OBSERVED BY THIS RN.
[2024-10-30] MEDS ORDERED: LORazepam 1 MG Tab PO PRN (15:50)
[2024-10-30] MEDS ORDERED: MethylPREDNISolone Sod Succ 40 MG VIAL IV PRN (16:15)
[2024-10-30] MEDS ORDERED: MethylPREDNISolone Sod Succ 40 MG VIAL IV SCH (18:00)
--- NOTE | 2024-10-30 18:39 | NUR ---
END OF SHIFT SUMMARY: A&Ox4. COOPERATIVE WITH MOST BEDSIDE CARE. STRUGGLING WITH AGREEMENT TO [id number] AND DECISIONS REGARDING END-OF-LIFE CARE. MANY LENGTHY DISCUSSIONS WITH PROVIDER, PALLIATIVE CARE AND ELEMENTARY SPANISH TEACHER; PLAN FOR HOSPICE [facility] ABLE TO FIND PLACEMENT HIS RN WILL NOT BE SUITABLE FOR SOMEONE ON HOSPICE CARE WITH LIMITED MOBILITY. CALLS APPROPRIATELY AND IS ABLE TO ADVOCATE NEEDS EFFECTIVELY. PREFERS NATUROPATHIC REMEDIES OPPOSED TO MODERN CLINICAL MEDICINE, COMPLICATING CARE. STRUGGLING WITH CONSTIPATION LAST FEW WEEKS BUT DECLINES OFFER OF BOWEL CARE AT THIS TIME. DOES NOT WANT PAIN MEDS ASIDE FROM APAP AT THIS TIME. AGREEABLE TO PREDNISONE TO AIDE IN DECREASING INFLAMMATION. URINARY RETENTION; AGREED TO NOVOA INSERTION; 800mL GREENISH BLUE URINE COLLECTED SECONDARY TO METHYLENE BLUE USE. SEE ELEMENTARY SPANISH TEACHER, TIME CLOCK INSPECTOR AND PROVIDER NOTES FOR FURTHER INFO. BED IN LOWEST POSITION, CALL LIGHT WITHIN REACH, ALL NEEDS MET. REPORT TO ONCOMING NURSE.
[2024-10-30 19:54] VITALS: BP 126/73
[2024-10-30] MEDS ORDERED: Dronabinol 2.5 MG Cap PO SCH (21:00)
[2024-10-30] MEDS ORDERED: Apixaban 5 MG Tab PO SCH (21:00)
--- NOTE | 2024-10-31 03:30 | NUR ---
SHIFT SUMMARY PATIENT HAS APPEARED TO SLEEP COMFORTABLY TONIGHT. HE REFUSED HIS MARINOL TONIGHT, BUT AGREED WITH THE SOLU MEDROL. PATIENT IS ORIENTED X4. PATIENT IS ANTICIPATING VISITING WITH HIS BROTHER IN THE MORNING. PATIENT STATES THAT HE HAS NUMBNESS THAT IS FROM HIS WAIST DOWN. THERE IS SOME MOVEMENT IN HIS LEGS. NOVOA CATHETER IS PATENT AND URINE IS MOSTLY CLEAR AND YELLOW. CALL LIGHT IS WITHIN REACH. SAFETY PRECAUTIONS ARE BEING MAINTAINED.
[2024-10-31 04:29] VITALS: BP 150/89
[2024-10-31 05:48] LABS: BASOPHILS ABSOLUTE AUTO 0.02 K/mm3 (0.00-0.23); BASOPHILS PERCENT AUTO 0 % (0-2); EOSINOPHILS ABSOLUTE AUTO 0.02 K/mm3 (0.00-0.68); EOSINOPHILS PERCENT AUTO 0 % (0-6); Hematocrit 36.6 % (37.0-53.0); Hemoglobin 12.4 g/dL (13.5-17.5); IMMATURE GRAN ABSOLUTE AUTO 0.02 K/mm3 (0.00-0.10); IMMATURE GRAN PERCENT AUTO 0 % (0-1); LYMPHOCYTES PERCENT AUTO 9 % (21-46); MONOCYTES ABSOLUTE AUTO 0.26 K/mm3 (0.16-1.47); MONOCYTES PERCENT AUTO 3 % (4-13); Mean Corpuscular HGB 31.5 pg (26.0-34.0); Mean Corpuscular HGB Conc 33.9 g/dL (31.5-36.5); Mean Corpuscular Volume 93 fL (80-100); Mean Platelet Volume 9.9 fL (9.1-12.4); NEUTROPHILS ABSOLUTE AUTO 6.52 K/mm3 (1.96-9.15); NEUTROPHILS PERCENT AUTO 86 % (41-73); Platelet Count 152 K/mm3 (150-400); RDW Coefficient Variation 12.9 % (11.7-14.2); Red Blood Cell Count 3.94 M/mm3 (4.30-5.90); White Blood Cell Count 7.54 K/mm3 (4.00-11.30)
[2024-10-31 06:13] LABS: Albumin, Blood 3.5 g/dL (3.4-5.0); Albumin/Globulin Ratio 1.1 (0.8-1.8); Bilirubin, Total 0.5 mg/dL (0.1-1.0); Bun/Creatinine Ratio 24.1 (12.0-20.0); Calcium, Blood 9.1 mg/dL (8.5-10.1); Creatinine, Blood 0.75 mg/dL (0.60-1.20); Globulin, Blood 3.3 g/dL (2.2-4.0); Potassium, Blood 4.4 mmol/L (3.5-5.5); Total Protein, Blood 6.8 g/dL (6.4-8.2)
[2024-10-31 07:26] VITALS: BP 161/90
[2024-10-31] MEDS ORDERED: Metoprolol Succinate 50 MG TABCR PO SCH (09:00)
[2024-10-31 13:27] LABS: BASOPHILS ABSOLUTE AUTO 0.02 K/mm3 (0.00-0.23); BASOPHILS PERCENT AUTO 0 % (0-2); EOSINOPHILS PERCENT AUTO 0 % (0-6); Hemoglobin 13.3 g/dL (13.5-17.5); IMMATURE GRAN ABSOLUTE AUTO 0.05 K/mm3 (0.00-0.10); IMMATURE GRAN PERCENT AUTO 1 % (0-1); LYMPHOCYTES ABSOLUTE AUTO 0.62 K/mm3 (0.84-5.20); LYMPHOCYTES PERCENT AUTO 6 % (21-46); MONOCYTES ABSOLUTE AUTO 0.36 K/mm3 (0.16-1.47); MONOCYTES PERCENT AUTO 4 % (4-13); Mean Corpuscular HGB 31.4 pg (26.0-34.0); Mean Corpuscular HGB Conc 33.3 g/dL (31.5-36.5); Mean Corpuscular Volume 95 fL (80-100); Mean Platelet Volume 9.9 fL (9.1-12.4); NEUTROPHILS ABSOLUTE AUTO 8.95 K/mm3 (1.96-9.15); NEUTROPHILS PERCENT AUTO 90 % (41-73); Platelet Count 156 K/mm3 (150-400); RDW Standard Deviation 44.1 fL (35.1-46.3); Red Blood Cell Count 4.23 M/mm3 (4.30-5.90)
[2024-10-31 14:17] LABS: Albumin, Blood 3.8 g/dL (3.4-5.0); Albumin/Globulin Ratio 1.1 (0.8-1.8); Bilirubin, Total 0.4 mg/dL (0.1-1.0); Bun/Creatinine Ratio 17.3 (12.0-20.0); Calcium, Blood 9.2 mg/dL (8.5-10.1); Creatinine, Blood 0.87 mg/dL (0.60-1.20); Globulin, Blood 3.5 g/dL (2.2-4.0); Potassium, Blood 4.7 mmol/L (3.5-5.5); Total Protein, Blood 7.3 g/dL (6.4-8.2)
[2024-10-31 15:07] VITALS: BP 143/77
--- NOTE | 2024-10-31 16:13 | NUR ---
MATTHEW IS A/O X4. HIS BROTHER CELINE AND FRIEND LINWOOD ARE AT BEDSIDE. PT DOES NOT DISPLAY ANY S/SX OF CURRENT DISTRESS AT REST. HE REPORTS PAIN WITH MOVEMENT AND DEEP RESPIRATIONS. URINARY CATHETER IS PATENT AND DRAINING LIGHT YELLOW. HE REPORTS RELIEF OF ABDOMINAL PRESSURE S/P NOVOA PLACEMENT YESTERDAY. HE REPORTS LAST BM WAS AT LEAST 4 DAYS AGO. HE IS AGREEABLE TO DRINKING WARM PRUNE JUICE, MELTED BUTTER AND APPLE JUICE TO ATTEMPT TO STIMULATE A BM. MATTHEW TALKES ABOUT WANTING TO USE THE [place] WITH [facility] THE HOMEOPATHIC INTERVENTIONS HE HAS BEEN USING ARE NOT PREVENTING THE METASTASIS OF CANCER. PT LIVES ALONE IN A REMOTE LOCATION AND NOT ABLE TO MEET HIS CARE NEEDS. CURRENTLY PT'S FRIEND ILNWOOD IS LOOKING AT [facility]S IN THE [place]. CARE MANAGEMENT IS ALSO WORKING ON OTHER DISCHARGE OPTIONS. PC TO REMAIN AVAILABLE NEEDED.
--- NOTE | 2024-10-31 18:29 | NUR ---
SHIFT SUMMARY PATIENT ALERT AND INTERACTIVE. PATIENT CONTINUES TO HAVE "NO FEELING" IN LEGS THAT VARIES FROM THE HIPS TO NIPPLE LINE. PATIENT RELUCTANT TO TAKE MUCH IN MEDICATIONS. PATIENT MORE HOLISTIC. PATIENT HAVING BACK PAIN AT TIMES BUT NOT WANTING TO TAKE ANYTHING MORE THAN TYLENOL. PATIENT USES MARIJUANA AT HOME FOR DISCOMFORTS. PATIENT REFUSING TO BE TURNED THROUGHOUT THE DAY. PATIENT EDUCATED ON THE IMPORTANCE OF TURNING TO PREVENT SKIN BREAKDOWN. MEPILEX APPLIED TO COCCYX BECAUSE OF BLANCHABLE REDNESS. BROTHER AT BEDSIDE MOST OF THE DAY. DISCHARGE PLAN CONTINUES TO BE IN PROGRESS WITH CASE MANAGEMENT. PATIENT TO DISCHARGE ON HOSPICE.
[2024-10-31 19:22] VITALS: BP 155/73
--- NOTE | 2024-11-01 04:05 | NUR ---
SHIFT SUMMARY PATIENT HAD NO ACUTE CHANGES. ALERT ORIENTED AND BEDREST. PIV INTACT. NOVOA PATENT AND DRAINING TO GRAVITY. DENIES CHEST PAIN, SOB, AND N/V. VSS/AFEBRILE. SLEPT MOST OF THE SHIFT. CALL LIGHT IN REACH. BED IN LOWEST POSITION. WILL CONTINUE TO MONITOR UNTIL DAY SHIFT NURSE ASSUMES CARE.
[2024-11-01 04:50] VITALS: BP 148/84
[2024-11-01 07:36] VITALS: BP 143/77
[2024-11-01] MEDS ORDERED: Atropine Sulfate 1% Opth Soln 2ML BTL SL PRN (11:50)
[2024-11-01] MEDS ORDERED: Haloperidol Lactate 2 MG / ML 15ML BTL PO PRN (11:55)
[2024-11-01] MEDS ORDERED: Scopolamine Hydrobromide Patch TOP PRN (11:55)
[2024-11-01] MEDS ORDERED: Omeprazole 20 MG CapCR PO PRN (11:55)
[2024-11-01] MEDS ORDERED: Morphine Sulfate 4 MG/1 ML Injection IV PRN (13:30)
[2024-11-01] MEDS ORDERED: DiphenhydrAMINE HCL 25 MG Cap PO PRN (13:35)
[2024-11-01] MEDS ORDERED: LORazepam 2 MG/ML 1ML Injection IV PRN (13:35)
[2024-11-01 15:21] VITALS: BP 140/73
--- NOTE | 2024-11-01 15:28 | NUR ---
PT IS A/O X4. MATTHEW REPORTS HIS INTRACTABLE TRUNK PAIN IS IMPROVING WITH THE USE OF IV MORPHINE. CONSTIPATION CONTINUES. BOWEL CARE ORDERS PLACED.
[2024-11-01] MEDS ORDERED: Bisacodyl 10 MG Supp PR PRN (15:30)
[2024-11-01] MEDS ORDERED: Magnesium Hydroxide Conc 10 ML UDC PO PRN (15:30)
--- NOTE | 2024-11-01 17:43 | NUR ---
SHIFT SUMMARY PT TRANSITIONED TO COMFORT CARE TODAY. ON RA, RESPIRATIONS EVEN AND UNLABORED. A/O AND ABLE TO MAKE NEEDS KNOWN AND USE CALL LIGHT APPROPRIATELY. PT REPORTS CONSTANT PAIN REQUIRING 1 MG MORPHINE ROUTINELY Q4H WITH FAIR RESULTS, PAIN INCREASES WITH ANY REPOSITIONING OR MOVEMENT. PAIN STILL REMAINS CONSISTANTLY AT 3-10. NOVOA CATHETER PATENT AND DRAINING CLEAR YELLOW URINE. APPETITE MINIMAL - PT TAKING ONLY BITES. PT HAS COME TO TERMS WITH HIS PROGNOSIS TODAY, HAS BEEN EMOTIONAL BUT THANKFUL FOR SUPPORT PROVIDED BY STAFF. FAMILY PRESENT AND VISITING T/O DAY. PT CURRENTLY RESTING PEACEFULLY WITH BED IN LOWEST POSITION AND CALL LIGHT WITHIN REACH. FAMILY AT BEDSIDE.
--- NOTE | 2024-11-02 04:00 | NUR ---
SHIFT SUMMARY PATIENT HAD NO ACUTE CHANGES. ALERT ORIENTED AND BEDREST. ON COMFORT CARE. REPORTED BACK/SHOULDER PAIN AND IV MORPHINE 1 MG GIVEN PER EMAR. NOVOA PATENT AND DRAINING TO GRAVITY. PIV INTACT. REPORTS BLE NUMBNESS. FRIEND IN ROOM AT SHIFT CHANGE. CALL LIGHT IN REACH. BED IN LOWEST POSITION. WILL CONTINUE TO MONITOR UNTIL DAY SHIFT NURSE ASSUMES CARE.
--- NOTE | 2024-11-02 12:36 | NUR ---
PAIN REVIEW: PT'S PAIN NOT WELL CONTROLLED CURRENTLY WITH Q4 HR PRN. DISCUSSION WITH HOSPITALIST AFTER ASSESSMENT: INCREASE PRN MORPHINE FREQUENCY TO KEEP PT'S PAIN BELOW 4/10.
[2024-11-02] MEDS ORDERED: Morphine Sulfate 4 MG/1 ML Injection IV PRN (12:45)
--- NOTE | 2024-11-02 16:54 | NUR ---
SHIFT SUMMARY: NO ACUTE CHANGES T/O SHIFT. PATIENT IS A&OX4, VERY PLEASANT AND COOPERTIVE c CARE. PATIENT VERBALIZES NEEDS, AND ASKS QUESTIONS APPROPRIATELY. PATIENT IS ON COMFORT CARE MEASURES. ASSESSING PATIENTS PAIN AND PRIMARY NURSE GAVE PRN PAIN MEDS PER EMAR. PATIENT DENIES ANY CHEST PAIN/PRESSURE. PATIENT IS ON RA, DENIES ANY SOB. PATIENT STATES,"I HAVEN'T HAD A BM IN 5 DAYS". PATIENT RECIEVED PRN BM MEDS PER EMAR. PATIENT TOLERATES MEALS. FAMILY AT BEDSIDE T/O SHIFT. PATIENT HAS A NOVOA FOR COMFORT AND IS DRAINING ADEQUATE AMOUNT OF URINE TO GRAVITY. PATIENT IS REPOSITIONED T/O SHIFT FOR COMFORT. BED IN LOWEST POSITION AND CALL LIGHT IN REACH.
[2024-11-02] MEDS ORDERED: Sod Phosphate/Sod Biphosphate 132 ML BTL PR ONE (23:45)
[2024-11-03] MEDS ORDERED: Docusate Sodium 100 MG Cap PO SCH ×2 (09:00→11:00)
[2024-11-03] MEDS ORDERED: Sennosides 8.6 MG Tab PO SCH ×2 (09:00→11:00)
[2024-11-03] MEDS ORDERED: Apixaban 5 MG Tab PO SCH (09:15)
[2024-11-03] MEDS ORDERED: Bisacodyl 10 MG Supp PR PRN (10:20)
[2024-11-03] MEDS ORDERED: Mineral Oil 133 ML Enema PR ONE (10:35)
[2024-11-03] MEDS ORDERED: Polyethylene Glycol 3350 17 gm PO PRN (10:35)
--- NOTE | 2024-11-03 15:37 | NUR ---
CLIENT ALERT AND ORIENTED & ON COMFORT CARE. C/O BACK SPASMS SINCE WAKING, IV MORPHINE GIVEN PER EMAR. NOVOA IN PLACE. FRIEND & FAMILY IN ROOM VISITING MOST OF SHIFT. REPORTS REDUCED SENSATION IN BILAT LOWER EXTRETMITIES. CLIENT HAD ONE SMALL BOWEL MOVEMENT TODAY. BED IN LOW POSITION AND CALL LIGHT WITHIN REACH.
--- NOTE | 2024-11-03 15:56 | NUR ---
Care report to Brisa student nurse and Luna Simmons who are assuming care.
--- NOTE | 2024-11-03 16:19 | NUR ---
WHILE DELIVERING MARINOL TO CLIENT, THE CAPLET WAS DROPPED AND STEPPED ON BY FAMILY MEMBER. MEDICATION WAS WASTED IN MED ROOM DESTRUCTION BOTTLE WITH TABATHA REGALADO RN WITNESSING. SPOKE WITH WALL SCRAPER CONCERNING WASTAGE, WELL PHARMACIST AND YARDING ENGINEER.
--- NOTE | 2024-11-03 16:42 | NUR ---
ASSUMPTION OF CARE: ASSUMED CARE OF PATIENT. AWAKE ASLEEP DURING SHIFT CHANGE REPORT. LYING SUPINE IN BED c TWO VISITORS AT BEDSIDE. BREATHING EVEN AND UNLABORED ON RA. REPORTS 5/10 PAIN BUT REFUSING PAIN MEDS. EDUCATION PROVIDED. NOVOA PATENT AND DRAINING URINE TO GRAVITY. BED IN LOWEST POSITION. CALL LIGHT WITHIN REACH. NO ACUTE NEEDS.
[2024-11-04] MEDS ORDERED: ATROPINE SULFATE2 M1 SL (07:37)
[2024-11-04] MEDS ORDERED: BISA10S PR (07:37)
[2024-11-04] MEDS ORDERED: BENADRYL25 MG PO (07:37)
[2024-11-04] MEDS ORDERED: DOCU100 PO (07:38)
[2024-11-04] MEDS ORDERED: DRON2.5 PO (07:39)
[2024-11-04] MEDS ORDERED: HALOPERIDOL2 MG/1 M1 PO (07:44)
[2024-11-04] MEDS ORDERED: Ativan0.5 MG PO (07:47)
[2024-11-04] MEDS ORDERED: DULCOLAX400 MG/5 M PO (07:48)
[2024-11-04] MEDS ORDERED: METHYLPREDNISOL IV (07:50)
[2024-11-04] MEDS ORDERED: OMEP20ER PO (07:51)
[2024-11-04] MEDS ORDERED: MORP20L SL (07:51)
[2024-11-04] MEDS ORDERED: MIRALAX17 GM PO (07:52)
[2024-11-04] MEDS ORDERED: TRANSDERM-SCOP1 EA13 TD (07:53)
[2024-11-04] MEDS ORDERED: SENN187 PO (07:54)
--- NOTE | 2024-11-04 08:28 | NUR ---
REPORT GIVEN TO PETAR AT HOSPICE HOUSE. PT READY FOR TRANSPORT. ALL PAPERWORK IS IN CHART
[2024-11-04] MEDS ORDERED: Mineral Oil 133 ML Enema PR PRN (11:00)
[2024-11-04] MEDS ORDERED: Morphine Sulfate 20 MG/1ML 1 ML Oral Syringe SL PRN (11:15)
[2024-11-04] MEDS ORDERED: Docusate Sodium 100 MG Cap PO PRN (15:45)
[2024-11-04] MEDS ORDERED: LORazepam 0.5 MG Tab PO PRN (15:45)
--- NOTE | 2024-11-04 15:56 | NUR ---
NO ACUTE CHANGES THIS SHIFT. PT DID NOT D/C PLANNED TODAY. MEDICATED FOR PAIN PER EMAR. CALLS APPROPRIATLEY. ORIENTED X4, LIFT REQUIRED. PT REFUSED Q 2HR TURNS BUT IS ABLE TO SHIFT IN BED.
--- NOTE | 2024-11-04 16:06 | NUR ---
PT CONTINUES TO ENDORSE CHEST PAIN THAT IS RELIEVED FOR SHORT TIME AFTER MEDICATION ADMINISTRATION. INDEPENDENT IN THE ROOM. CALLS APPROPRIATELY, PLAN TO MONITOR PAIN LEVELS AFTER INCREASE DOSE OF IMDUR. POSSIBLE D/C TOMORROW
--- NOTE | 2024-11-05 05:14 | NUR ---
UTILITY APPRAISER SUMMARY: PT A&O X4. MAKES NEEDS KNOWN. MEDICATED T/O SHIFT FOR MID BACK PAIN PER EMAR ORDERS ; EFFECTIVE. PLEASANT AND COOPERATIVE WITH CARE. 2 PERSON ASSIST WITH TURN SCHEDULE. NOVOA DRAINING YELLOW URINE TO GRAVITY. ANTICIPATING PLACEMENT WITH HOSPICE SERVICES. CALL LIGHT IN REACH. CARES ONGOING ORDERED.
[2024-11-05] MEDS ORDERED: PredniSONE 20 MG Tab PO SCH (09:00)
[2024-11-05] MEDS ORDERED: PredniSONE 10 MG Tab PO SCH (09:00)
--- NOTE | 2024-11-05 10:21 | NUR ---
pt sitting up in bed awake a/ox3, pleasant and cooperative with care, states pain is some better after roxinol this am, he is a bit confused on plan, and believes if he were on hospice he could not have anything by mouth, lungs are dim t/o, resp even and unlabored, on r/a, occ nonproductive cough, hrr, no edema noted, ppp+1, denies any feeling from waist down, and cannot move legs at all, piv to lac, site is clear and patent, btx4, abd somewhat firm, he reports no bm for five days, voids via duron cath, skin has mepilex on coccyx, moves upper ext well, bonnie, call light in reach.
--- NOTE | 2024-11-05 18:35 | NUR ---
pt states he is doing ok except his bottom is sore even though he has been repostioned with pillows. lots of visitors in room, no acute changes this shift. call light in reach.
--- NOTE | 2024-11-06 08:00 | NUR ---
pt laying in bed awake a/ox4, pleasant and coopertive with care, in good spirits this am, did not want to take metoprolol or prednisone this am, lungs are dim, on r/a, no cough noted, hrr, piv to lac, site is clear and patent, btx4, abd round soft nontender, reports no bm for five days, but did have a small soft stool yesterday, duron cath in place draining yellow urine, skin c/w/d, bonnie dutton, call light in reach.
--- NOTE | 2024-11-06 18:51 | NUR ---
SHIFT SUMMARY 1315 ASSUMED CARE OF PT WHO WAS RESTING QUIETLY AT THAT TIME. MEDICATED EARLIER FOR PAIN. PT IS ON COMFORT CARE D/T PROSTATE CA WITH METS TO BONE AND BRAIN. MULTIPLE FAMILY AND FRIENDS IN OFF AND ON THUR OUT THE DAY. BED BATH AND LINEN CHANGE DONE; PT GRATEFUL. MEDICATED PRIOR TO BED BATH. PER PT AND REPORT, ADDITIONAL BOWEL CARE NEEDED. MIRALAX GIVEN. NOVOA TO GRAVITY; PATENT. DENIES FURTHER NEEDS AT THIS TIME. FRIEND REMAINS IN RM AT THIS TIME. CALL LT IN REACH.
--- NOTE | 2024-11-07 03:18 | NUR ---
SHIFT SUMMARY NO ACUTE EVENTS DURING THIS SHIFT. MEDICATED WITH PRN 20MG ROXINOL T/O THIS SHIFT PER PT REQUEST. PT REFUSED MOST OF THE SCHEDULED HS MEDICATIONS, INCLUDING BOWEL CARE MEDICATIONS. NO BM DURING THIS SHIFT. NOVOA DRAINING TO GRAVITY YELLOW COLOR URINE. REPOSITIONED Q2HRS. PT REPORTS CANNOT MOVE LOWER EXTREMITIES NOR FEEL THEM. SOME AGITATION NOTED @HS. REDIRECTABLE. BED AT THE LOWEST POSITION, CALL LIGHT W/I REACH. PT IS A/O X4, ABLE TO MAKE HIS NEEDS KNOWN AND COOPERATIVE WITH CARE.
--- NOTE | 2024-11-07 08:06 | NUR ---
ASSUMPTION OF CARE: ASSUMED CARE OF PATIENT. AWAKE DURING SHIFT CHANGE REPORT. LYING SUPINE IN c HOB ELEVATED. BREATHING EVEN AND UNLABORED. NOVOA PATENT AND DRAINING YELLOW URINE TO GRAVITY. NOTED TO BE "PATTING" LEGS AND ABDOMEN STATING THEY WERE GOING NUMB AND REQUESTING PAIN MEDICATIONS. BED IN LOWEST POSITION. CALL LIGHT WITHIN REACH. NO ACUTE NEEDS.
[2024-11-07] MEDS ORDERED: Bisacodyl 10 MG Supp PR ONE (09:00)
[2024-11-07] MEDS ORDERED: Polyethylene Glycol 3350 17 gm PO SCH (09:00)
--- NOTE | 2024-11-08 03:59 | NUR ---
SHIFT SUMMARY ADMITTED FOR WEAKNESS/GLF. DNR CODE. PROSTATE CANCER W/METS. ON COMFORT CARE. NOVOA IN PLACE. REGULAR DIET. BEDREST. ON RA. A&O X3. PAIN MEDICATION GIVEN THROUGHOUT SHIFT TO GOOD EFFECT. PATIENT REFUSED ALL OTHER MEDICATIONS EXCEPT BENEDRYL DUE TO ITCHING. PLAN IS TO WAIT FOR MEDICAID APPROVAL FOR DC TO [facility] ON HOSPICE.
--- NOTE | 2024-11-08 10:56 | NUR ---
Spiritual Care Visit. Pt. is awake in bed, two male family members are present. Pt. is unsettled by his circumstances, and displays evidence of being very guarded. Spiritual Care was not what the Pt. felt he needed in the moment. The Pt. did verbalize gratitude that we care for his well being. Will remain available to the Pt. and family.
--- NOTE | 2024-11-08 11:12 | NUR ---
ASSUMED CARE AT 0700 PT REQUESTING PAIN MEDS DURING BEDSIDE SHIFT REPORT. PT REQUESTING 1/2 DOSE. PT ALERT, ORIENTED, ABLE TO MAKE NEEDS KNOWN. NOVOA PATENT WITH CLEAR YELLOW URING. PT GETTING READY FOR MEETING AT 8-9 AND HAS NO COMPLAINTS OR OTHER NEEDS AT THIS TIME.
--- NOTE | 2024-11-08 17:39 | NUR ---
END OF SHIFT PT ALERT AND ORIENTED BUT WITH SOME FORGETFULNESS. HE HAS BEEN PLEASANT BUT DOES GET FRUSTRATED WHEN THINGS ARE TO LOUD. PT HAS NEEDED MORE PAIN MEDS TODAY COMPARED TO PREVIOUSLY, HE STATED THAT HE FEELS THERE IS MORE PRESSURE IN HIS LOWER PELVIS AREA AND BELIEVES IT IS FROM THE CANCER. HE HAS DENIED SOB, RESP ARE EVEN AND UNLABORED. HE CONTINUES TO HAVE PAIN IN BOTH LOWER LEGS WELL NUMBNESS. HE HAS BEEN REPOSITIONED EVERY 2-3 HOURS, HE DOESNT ALWAYS WANT REPOSITIONED BECAUSE HE HAS FAMILY AND FRIENDS IN THE ROOM AND IS COMFORTABLE. HE CONT TO REFUSE BOWEL MEDS, ALTHOUGH THIS AM INITIALY SAID HE WANTED IT, AND AFTER IT WAS PLACED IN THE CUP INFRONT OF HIM HE DECLINED. PT EDUCATED ON THE NEED FOR FREQUENT REPOST AND VERBALIZES UNDERSTANDING. HIS NOVOA IS PATNENT WITH CLEAR DARKER YELLOW URINE. PT WILL BE DISCHARGED TOMORROW AROUND 1000 TO A [facility], WHICH HE APPEARS TO BE HAPPY ABOUT. HE USES HIS CALL LIGHT APPROPRIATELY AND DENIES ANY UNMET NEEDS. TO GO TO.
--- NOTE | 2024-11-09 04:52 | NUR ---
SHIFT SUMMARY ADMIT 10/29/24 AFTER 2 WEEKS OF PRORGRESIVE WEAKNESS/NUMBNESS IN BLE, FALL, AND NEIGHBORS CALLING A WELL-CHECK. DNR. COMFORT CARE. PROSTATE CANCER WITH METS TO SKULL, BRAIN, SPINE, R ILIAC. HX CVA, AFIB, AND PRIOR SADDLE PE WITH COR PULMONALE, ON AM DOSE ELIQUIS ONLY (PT PREFERENCE). HAS INDWELLING NOVOA CATH WITH CLEAR DARK URINE OUTPUT. NO BM TODAY. PT ACCEPTS BOWEL CARE PER [facility] IF NOT A STIMULANT/ENEMA. BEDBOUND. PT PREFERS REPOSIONING PRN RATHER THAN Q2H, AWARE OF RISK OF WORSENING OF STAGE 1 COCCYX ULCER. A&OX4 WITH INTERMITTENT FORGETFULNESS. WHEN AWAKE, PT REQUESTING 10-20 MG ROXANOL Q1H, AND DOES NOT WANT OTHER COMFORT CARE MEDICATIONS IN [facility] AT THIS TIME. PLAN FOR D/C TO [facility]ULT [facility] AT 10 AM 11/09/24. D/C PAPERS PREVIOUSLY SIGNED.
[2024-11-09] MEDS ORDERED: Morphine Sulfate 20 MG/1ML 1 ML Oral Syringe SL PRN (06:30)
[2024-11-09] MEDS ORDERED: PRED20 PO (09:50)
--- NOTE | 2024-11-09 12:02 | NUR ---
PT DISCHARGED TO [facility] WITH SAME DAY HOSPICE ADMIT. [facility] PROVIDED REENPADRIEL @ 1200. PT SLID TO [facility] USING SLIDE SHEET 2 PARAMEDICS AND 2 STAFF MEMBERS. PT TOLERATED WELL. DC'D WITH SOMMER. IV REMOVED AND SITE APPEARS WNL. PT LEFT SHOES BEHIND - CONTACTED PT BROTHER TO NOTIFY OF BELONGINGS LEFT BEHIND, NO ANSWER AND VOICEMAIL LEFT ON CELINE'S PHONE.
== END 2024-11-09 12:00 ==
LOC: ER 11:52 → MEDS 11:53 → ENPENDDIS 11-04 09:34 → MEDS 11-09 12:00
PROVIDERS: Emergency Medicine; Family Medicine; Student in an Organized Health Care Education/Training Program; ADMIT Internal Medicine
DX: R53.1 Weakness (principal); C61 Malignant neoplasm of prostate; I48.20 Chronic atrial fibrillation, unspecified; K59.00 Constipation, unspecified; L89.151 Pressure ulcer of sacral region, stage 1; N39.0 Urinary tract infection, site not specified; E03.9 Hypothyroidism, unspecified; Z66 Do not resuscitate; Z51.5 Encounter for palliative care; Z79.01 Long term (current) use of anticoagulants; Z87.891 Personal history of nicotine dependence
CPT/HCPCS: 36415; 51701; 51702; 70450; 71260; 74177; 80053; 81001; 82550; 85025; 85651; 86140; 87086; 93005; 93010; 96365-59; 96375; 96376; 99285-25; A9270; G0103; G0378; J0696; J2060; J2270; J2919; J7030; J7512; Q0167; Q9967